=== PATIENT | female | born 1975 | race Caucasian/White ===

== ENCOUNTER → 2019-12-14 10:17 | Outpatient (BNVA) | payer SELFPAY | PROVIDERS: Family Provider Nurse Practitioner Family; PCP Registered Nurse; Visit Provider Registered Nurse | DX: I10 Essential (primary) hypertension (principal); E78.5 Hyperlipidemia, unspecified; F41.1 Generalized anxiety disorder; I25.10 Atherosclerotic heart disease of native coronary artery without angina pectoris; R51 Headache | CPT/HCPCS: 80053; 80061; 84443; 85025 ==

== ENCOUNTER 2021-05-03 14:08 | Outpatient (CLI) | payer OTHER, SELFPAY ==
--- NOTE | 2021-05-03 14:17 | MM_ITS ---
WS: [id number] SCREENING DIGITAL MAMMOGRAM WITH CAD HISTORY: SCREENING COMPARISON: None available. Bilateral CC and MLO views submitted. Computer aided detection analyzed. Breast composition: The breasts are heterogeneously dense, which may obscure small masses. No suspici ous masses, microcalcifications or architectural distortion. MM/[id number] IMPRESSION: BI-RADS: 1-Negative FOLLOW UP: 1 Year Follow-up
== END 2021-05-03 14:09 | disposition home or self-care (01) ==
LOC: RADSHAW 14:13
PROVIDERS: PCP Registered Nurse; Visit Provider Registered Nurse
DX: Z12.31 Encounter for screening mammogram for malignant neoplasm of breast (principal)
CPT/HCPCS: 77067

== ENCOUNTER → 2021-07-18 09:00 | Outpatient (BNVA) | payer MEDICAID, SELFPAY | PROVIDERS: PCP Registered Nurse; Visit Provider Registered Nurse | DX: Z20.822 Contact with and (suspected) exposure to COVID-19 (principal); Z11.52 Encounter for screening for COVID-19 | CPT/HCPCS: 87486; 87581; 87633; 87635 ==

== ENCOUNTER 2021-10-14 21:29 | Inpatient (IN) | payer MEDICAID, SELFPAY ==
--- NOTE | 2021-10-14 21:35 | W.ED.PSYCHS ---
HPI - Psych General: Chief Complaint: Psychiatric Symptoms Stated Complaint: SI Time Seen by Provider: 10/14/21 21:31 Source: patient and police Mode of arrival: other (police) Limitations: no limitations History of Present Illness: 46-year-old female is here with police for suicidal ideations. She states she has been having increasing depression she had been drinking tonight and had a knife and was going to kill herself with a knife. She did not actually cut herself but she had a plan of slitting her wrist. She states that she just does not feel like living anymore and feels like no one would miss her and just wants to be gone. She is denying any worsening improving factors. Associated symptoms: Reports depression and suicidal ideation Review of Systems Const: Denies: fever(s), chills, body aches or change in appetite Eyes: Denies: blurry vision or eye discomfort ENMT: Denies: throat pain or dental pain Card: Denies: chest pain Resp: Denies: dyspnea GI: Denies: abdominal pain, nausea, vomiting or diarrhea : Denies: dysuria Musc: Denies: neck pain or back pain Skin/Breast: Denies: rash Neuro: Denies: headache(s) Psych: Reports: depression and suicidal ideation Julian/Lymph: Denies: easy bruising All/Imm: Denies: urticaria PFSH ED PFSH: Medical History Anxiety and depression ASHD (arteriosclerotic heart disease) Dyslipidemia Hypertension Irritable bowel syndrome Tobacco abuse Family History Other Cancer Diabetes Heart disease Hypertension Thyroid disease Social History Smoking and tobacco status: current every day smoker cigarettes Packs smoked per day: 1 Years cigarettes smoked: 30 Alcohol intake: current Alcohol intake frequency: 3 or more drinks per day Adopted: No Caregiver/support person: No Lives independently: Yes Household members: spouse and children Marital status: Current occupational status: other History of recent travel: No Sexually active: Yes Current gender identity: Female Physical Exam Const: COMMON NORMALS: no acute distress, patient oriented x3 and healthy appearing HENMT: COMMON NORMALS: normocephalic and atraumatic HEAD & SCALP: normocephalic and atraumatic Eye: COMMON NORMALS: Equal, round and reactive pupils present and EOMs intact bilaterally PUPIL: Yes Equal, round and reactive pupils present Neck/C-Spine: COMMON NORMALS: full ROM and supple Chest: COMMONS NORMALS: normal inspection of the chest and normal palpation of entire chest wall Resp: COMMON NORMALS: normal respiratory effort, No retractions, No use of accessory muscles and clear to auscultation bilaterally AUSCULTATION: clear to auscultation bilaterally Cardio: COMMON NORMALS: regular rate, regular rhythm and No murmurs present (Cardio) RATE: regular rate RHYTHM: regular rhythm GI: COMMON NORMALS: Normal to inspection, nondistended, normoactive bowel sounds present, Soft to palpation, non-tender and no masses PALPATION: Yes Soft to palpation Extremity: COMMON NORMALS: normal to inspection and full ROM Neuro: COMMON NORMALS: patient oriented x3, moves all extremities and no focal motor deficits Psych: COMMON NORMALS: mental status grossly normal, Normal thought process present and cooperative THOUGHT PROCESS: Normal thought process present THOUGHT CONTENT: Yes Suicidality present Skin: COMMON NORMALS: no rashes or lesions noted and no wounds GENERAL SKIN EXAM: no rashes or lesions noted Course Vital Signs: Vital signs: Vital Signs Temperature 98 F 10/14/21 21:36 Pulse Rate 70 10/14/21 21:36 Respiratory Rate 24 H 10/14/21 21:36 Blood Pressure 150/90 10/14/21 21:36 Pulse Oximetry 100 10/14/21 21:36 [facility] - Psych Medical Decision Making Patient presents for suicidal ideation she has not been drinking alcohol as well. Patient placed on a 96-hour hold she is medically cleared I spoke to psychiatrist and will admit. Lab Data : 10/14/21 21:54 10/14/21 21:54 Laboratory Results WBC 9.7 10^3/uL (4.0-10.0) 10/14/21 21:54 RBC 4.96 10^6/uL (4.1-5.3) 10/14/21 21:54 Hgb 15.5 g/dL (11.5-15.3) H 10/14/21 21:54 Hct 43.4 % (37.0-47.0) 10/14/21 21:54 MCV 87.5 fl (81-99) 10/14/21 21:54 MCH 31.3 pg (28.0-34.0) 10/14/21 21:54 MCHC 35.7 g/dL (30.0-36.0) 10/14/21 21:54 RDW 12.3 % (12.1-15.1) 10/14/21 21:54 Plt Count 308 10^3/cmm (130-400) 10/14/21 21:54 MPV 8.8 fL (7.4-10.4) 10/14/21 21:54 Neut % (Auto) 59.6 % 10/14/21 21:54 Lymph % (Auto) 31.1 % 10/14/21 21:54 [place] % (Auto) 7.1 % 10/14/21 21:54 Eos % (Auto) 1.4 % 10/14/21 21:54 Baso % (Auto) 0.5 % 10/14/21 21:54 Neut # (Auto) 5.77 10^3/uL (1.8-7.7) 10/14/21 21:54 Lymph # (Auto) 3.0 10^3/uL (0.8-4.8) 10/14/21 21:54 [place] # (Auto) 0.7 10^3/uL (0.2-0.9) 10/14/21 21:54 Eos # (Auto) 0.1 10^3/uL (0.0-0.8) 10/14/21 21:54 Baso # (Auto) 0.1 10^3/uL (0.0-0.1) 10/14/21 21:54 Nucleated RBC % (auto) 0 % 10/14/21:54 Nucleated RBCs # 0.0 /100WBC 10/14/21 21:54 Sodium 133 mmol/L (136-145) L 10/14/21 21:54 Potassium 3.1 mmol/L (3.5-5.1) L 10/14/21 21:54 Chloride 95 mmol/L (98-107) L 10/14/21 21:54 Carbon Dioxide 23 mmol/L (22-29) 10/14/21 21:54 Anion Gap 18.1 (5-19) 10/14/21 21:54 BUN 4 mg/dL (6-20) L 10/14/21 21:54 Creatinine 0.6 mg/dL (0.5-0.9) 10/14/21 21:54 GFR Calculation 108.6 mL/min (90-130) 10/14/21 21:54 Glucose 113 mg/dL (65-115) 10/14/21 21:54 Calculated Osmolality 274 mOsm/kg (285-295) L 10/14/21 21:54 Calcium 9.7 mg/dL (8.5-10.5) 10/14/21 21:54 Total Bilirubin 0.4 mg/dL (0.15-1.2) 10/14/21 21:54 AST 27 U/L (0-32) 10/14/21 21:54 ALT 33 U/L (0-33) 10/14/21 21:54 Alkaline Phosphatase 72 IU/L (35-105) 10/14/21 21:54 Total Protein 8.0 g/dL (6.6-8.7) 10/14/21 21:54 Albumin 5.0 g/dL (3.5-5.2) 10/14/21 21:54 Globulin 3.0 g/dL (1.3-4.6) 10/14/21 21:54 HCG, Qual Negative (Negative) 10/14/21 21:55 Salicylates < 0.3 mg/dL (3-10) L 10/14/21 21:54 Urine Opiates Screen Negative ng/mL (Negative) 10/14/21 21:55 Acetaminophen < 5.0 ug/mL (10-30) L 10/14/21 21:54 Ur Barbiturates Screen Negative ng/mL (Negative) 10/14/21 21:55 Ur Phencyclidine Scrn Negative ng/mL (Negative) 10/14/21 21:55 Ur Amphetamines Screen Negative ng/mL (Negative) 10/14/21 21:55 U Benzodiazepines Scrn Negative ng/mL (Negative) 10/14/21 21:55 Urine Cocaine Screen Negative ng/mL (Negative) 10/14/21 21:55 U Marijuana (THC) Screen Negative ng/mL (Negative) 10/14/21 21:55 Ethyl Alcohol 200 mg/dL (0-10) H 10/14/21 21:54 Discharge Plan Discharge Patient Disposition: Admitted As Inpatient Clinical Impression: Suicidal ideation, Alcohol intoxication Condition: Stable Coding Level of Care Code ED Brake Machine Operator for Chg Fwd Exam Comprehensive
[2021-10-14 21:36] VITALS: BP 150/90; PULSE 70; RESP 24; TEMP 36.6; O2SAT 100
[2021-10-14 22:06] LABS: Basophils # 0.1 10^3/uL (0.0-0.1); Basophils % 0.5 %; Eosinophils # 0.1 10^3/uL (0.0-0.8); Eosinophils % 1.4 %; Hematocrit 43.4 % (37.0-47.0); Hemoglobin 15.5 g/dL (11.5-15.3); Lymphocytes % 31.1 %; Mean Corpuscular HGB Conc 35.7 g/dL (30.0-36.0); Mean Corpuscular Hemoglobin 31.3 pg (28.0-34.0); Mean Corpuscular Volume 87.5 fl (81-99); Mean Platelet Volume 8.8 fL (7.4-10.4); Monocytes # 0.7 10^3/uL (0.2-0.9); Monocytes % 7.1 %; Neutrophils # 5.77 10^3/uL (1.8-7.7); Neutrophils % 59.6 %; Nucleated Red Blood Cells % 0 %; Platelet Count 308 10^3/cmm (130-400); Red Blood Count 4.96 10^6/uL (4.1-5.3); Red Cell Distribution Width 12.3 % (12.1-15.1); White Blood Count 9.7 10^3/uL (4.0-10.0)
[2021-10-14 22:08] LABS: HCG Qualitative Urine. Negative (Negative)
[2021-10-14 22:20] LABS: Amphetamines Screen Urine Negative (Negative); Barbiturates Screen Urine Negative (Negative); Benzodiazepines Screen Urine Negative (Negative); Cocaine Screen Urine Negative (Negative); Opiate Screen Urine Negative (Negative); PCP Screen Urine Negative (Negative); THC Screen Urine Negative (Negative)
[2021-10-14 22:32] LABS: Alanine Aminotransferase 33 U/L (0-33); Alcohol Level 200 mg/dL (0-10); Alkaline Phosphatase 72 IU/L (35-105); Anion Gap 18.1 (5-19); Aspartate Amino Transferase 27 U/L (0-32); Blood Urea Nitrogen 4 mg/dL (6-20); Calcium 9.7 mg/dL (8.5-10.5); Carbon Dioxide 23 mmol/L (22-29); Chloride 95 mmol/L (98-107); Glomerular Filtration Rate 108.6 mL/min (90-130); Glucose 113 mg/dL (65-115); Osmolality Calculated 274 mOsm/kg (285-295); Potassium 3.1 mmol/L (3.5-5.1); Sodium 133 mmol/L (136-145); Total Bilirubin 0.4 mg/dL (0.15-1.2)
[2021-10-14 22:33] LABS: Acetaminophen < 5.0 ug/mL (10-30); Salicylate < 0.3 mg/dL (3-10)
[2021-10-14 23:07] VITALS: BP 124/79; PULSE 63; RESP 18; TEMP 36.4; O2SAT 98
[2021-10-14 23:21] VITALS: BP 139/88; PULSE 68; RESP 18; TEMP 36.3; O2SAT 94
[2021-10-14] MEDS: acetaminophen 325 mg Tablet 650 MG PO (23:37)
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
[2021-10-15] MEDS: trazodone 50 mg Tablet PO ×2 (00:09→21:05)
[2021-10-15 06:00] VITALS: BP 121/73; PULSE 90; RESP 17; TEMP 36.8; O2SAT 94
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
[2021-10-15] MEDS: multivitamin therapeutic Tablet 1 TAB PO (09:53)
[2021-10-15] MEDS: folic acid 1 mg Tablet PO (09:53)
[2021-10-15] MEDS: aspirin 81 mg EC Tablet PO (09:53)
[2021-10-15] MEDS: metoprolol tartrate 25 mg Tablet PO (09:53)
[2021-10-15] MEDS: thiamine 100 mg Tablet PO (09:53)
[2021-10-15] MEDS: atorvastatin 40 mg Tablet PO (09:53)
[2021-10-15] MEDS: hydroCHLOROthiazide 25 mg Tablet 12.5 MG PO (09:54)
[2021-10-15] MEDS: fluoxetine 10 mg Capsule 20 MG PO (09:54)
[2021-10-15] MEDS: lisinopril 10 mg Tablet PO (10:00)
[2021-10-15 14:00] VITALS: BP 125/70; PULSE 59; RESP 16; O2SAT 94
--- NOTE | 2021-10-15 15:21 | PC.SOCIAL ---
Patient attended and participated in group.
[2021-10-15 19:34] VITALS: BP 135/85; PULSE 61; RESP 18; TEMP 36.6; O2SAT 95
[2021-10-16 06:00] VITALS: BP 113/70; PULSE 89; RESP 17; TEMP 37; O2SAT 95
[2021-10-16] MEDS: thiamine 100 mg Tablet PO (10:11)
[2021-10-16] MEDS: folic acid 1 mg Tablet PO (10:11)
[2021-10-16] MEDS: fluoxetine 10 mg Capsule 20 MG PO (10:11)
[2021-10-16] MEDS: aspirin 81 mg EC Tablet PO (10:11)
[2021-10-16] MEDS: lisinopril 10 mg Tablet PO (10:12)
[2021-10-16] MEDS: multivitamin therapeutic Tablet 1 TAB PO (10:12)
[2021-10-16] MEDS: atorvastatin 40 mg Tablet PO (10:12)
[2021-10-16] MEDS: metoprolol tartrate 25 mg Tablet PO (10:12)
[2021-10-16] MEDS: hydroCHLOROthiazide 25 mg Tablet 12.5 MG PO (10:13)
--- NOTE | 2021-10-16 12:23 | P.NPUPN_ITS ---
Subjective NPU Subjective: She says that she is feeling much better. She is not sure why. She is surprised how well she is feeling. She does not like to be here and we think that that would cause her to be in a stressed out mood. She thinks that depression is more prominent than anxiety. She does get overwhelmed easily. She has stopped going to family functions because she cannot stand the drama and gets overwhelmed easily. She sometimes gets overwhelmed at [employer]. She has not had any side effects from the Prozac 20 mg. She wants to take the lowest dose possible. She does not like taking medication in general. Mental Status Exam MSE Comments: This is a 46-year-old overweight female who appears ap proximately her stated age and is in no acute distress. She is pleasant and cooperative with the evaluation. She is dressed in hospital scrubs with fairly good grooming. psychomotor activity is normal Speech is at a regular rate and rhythm, normal volume, good articulation, not pressured. Alert, oriented X3 Attention and concentration appears to be normal. Memory is intact Mood is mildly depressed. Affect is mildly dysphoric, significantly better Thought process is logical and goal-directed. Thought content: Denies auditory and visual hallucinations. No delusions or paranoia are noted. No current suicidal ideation. no homicidal ideation. Fund of knowledge is average. Insight and judgment appear to be fair. Impulse control is poor. Cognition: Patient Appearance: Appropriate Level of Consciousness: Awake and Alert Patient Cognition Impaired: No Ability to Follow Directions: Good Patient Orientation (long list): Person, Place, Time, Name, Age, Birthday, Month and Time of Day Comprehension Ability: No Impairment Hallucination Type: None Delusion Description: Not Present Thought Process: Appropriate Affect: Affect Description: Appropriate and Anxious Behavior: Patient Behavior: Appropriate and Cooperative Speech Pattern: Appropriate and Clear Vitals/I&O/Wt Last Vital Signs Temp 98.6 F 10/16/21 06:00 Pulse 89 10/16/21 06:00 Resp 17 10/16/21 06:00 BP 113/70 10/16/21 06:00 Pulse Ox 95 10/16/21 06:00 Data NPU : 10/14/21 21:54 10/14/21 21:54 A&P Assessment and plan (1) Suicidal ideation: Status: Acute (2) Alcohol intoxication: Status: Acute (3) Shortness of breath at rest: Status: Acute (4) Anxiety and depression: Status: Acute (5) Irritable bowel syndrome: Status: Acute Qualifiers: Irritable bowel syndrome type: without diarrhea Qualified Code(s): K58.9 - Irritable bowel syndrome without diarrhea (6) Tobacco abuse: Status: Acute (7) Hypertension: Status: Acute Qualifiers: Hypertension type: essential hypertension Qualified Code(s): I10 - Essential (primary) hypertension (8) ASHD (arteriosclerotic heart disease): Status: Chronic (9) Dyslipidemia: Status: Chronic Plan This is a 46-year-old female who has longstanding anxiety and depression but never adequately treated who comes in for worsening depression and alcohol abuse with suicidal ideation. Plan: 1. Continue current medication. Increase Prozac to 20 mg daily 2. Continue every 15 minute checks for safety. 3. Encourage individual, group and milieu therapies. 4. Encourage sober living treatment after discharge at the highest level of care to which she is willing to commit. 5. We will monitor for safety for herself in the community prior to discharge. Involuntary Hold Information 96 Hour Hold: 96 Hour Involuntary Admission: Yes 96 Hour Hold Ending Date: 10/18/21 96 Hour Hold Ending Time: 22:45 Attestations NPU Medical Necessity Statement*: Inpatient hospitalization is medically necessary and the clinically appropriate intervention at this time. We will initiate medications and make changes as indicated. Coding Level of Care Code Acute Environmental Conflict Manager for [facility] Diagnoses Suicidal ideation R45.851 Alcohol intoxication F10.929 Shortness of breath at rest R06.02 Anxiety and depression F41.9; F32.9 Irritable bowel syndrome K58.9 Irritable bowel syndrome type: without diarrhea Tobacco abuse Z72.0 Hypertension I10 Hypertension type: essential hypertension ASHD (arteriosclerotic heart disease) I25.10 Dyslipidemia E78.5
[2021-10-16 13:38] VITALS: BP 107/58; PULSE 58; RESP 16; TEMP 36.6; O2SAT 97
[2021-10-16 19:58] VITALS: BP 103/64; PULSE 60; RESP 17; TEMP 36.9; O2SAT 95
[2021-10-17 06:00] VITALS: BP 108/75; PULSE 69; RESP 18; TEMP 36.9; O2SAT 96
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
[2021-10-17] MEDS: thiamine 100 mg Tablet PO (08:28)
[2021-10-17] MEDS: lisinopril 10 mg Tablet PO (08:28)
[2021-10-17] MEDS: folic acid 1 mg Tablet PO (08:28)
[2021-10-17] MEDS: multivitamin therapeutic Tablet 1 TAB PO (08:28)
[2021-10-17] MEDS: hydroCHLOROthiazide 25 mg Tablet 12.5 MG PO (08:29)
[2021-10-17] MEDS: metoprolol tartrate 25 mg Tablet PO (08:29)
[2021-10-17] MEDS: aspirin 81 mg EC Tablet PO (08:29)
[2021-10-17] MEDS: atorvastatin 40 mg Tablet PO (08:29)
[2021-10-17] MEDS: fluoxetine 10 mg Capsule 20 MG PO (08:29)
[2021-10-17 08:31] VITALS: BP 108/75; PULSE 69; RESP 18; TEMP 36.9; O2SAT 96
--- NOTE | 2021-10-17 08:42 | PC.NURSE ---
Discharge Note All discharge teaching provided to patient and . Left by POV. All belongings returned to patient and property sheet signed. Verbalized understanding and discharge sheet signed. All questions answered and support voiced. Discharged at 0840 no distress noted and VSS.
== END 2021-10-17 08:40 | disposition home or self-care (01) | DRG 881 ==
LOC: ER 22:09 → NP 23:19
PROVIDERS: Admitting Provider Psychiatry & Neurology Psychiatry; Emergency Provider Emergency Medicine; PCP Registered Nurse; Visit Provider Psychiatry & Neurology Psychiatry
DX: F32.9 Major depressive disorder, single episode, unspecified (principal); R45.851 Suicidal ideations; F41.9 Anxiety disorder, unspecified; F10.929 Alcohol use, unspecified with intoxication, unspecified; F17.210 Nicotine dependence, cigarettes, uncomplicated; Y90.7 Blood alcohol level of 200-239 mg/100 ml
CPT/HCPCS: 80053; 80306; 80307; 81025; 85025; 97150; 97165; 99285

== ENCOUNTER → 2022-03-05 14:25 | Outpatient (BNVA) | payer MEDICAID, SELFPAY | PROVIDERS: PCP Registered Nurse; Visit Provider Registered Nurse | DX: I10 Essential (primary) hypertension (principal); G56.03 Carpal tunnel syndrome, bilateral upper limbs; Z72.0 Tobacco use; R06.02 Shortness of breath | CPT/HCPCS: 80053; 85025 ==

== ENCOUNTER 2022-07-29 20:34 | Observation (INO) | payer MEDICAID, SELFPAY ==
[2022-07-29] VITALS (10 sets, daily range): BP systolic 133–175; BP diastolic 76–106; PULSE 63–78; RESP 16–25; TEMP 37.4; O2SAT 93–100; BMI 27.3
--- NOTE | 2022-07-29 20:34 | ECG_ITS ---
[facility] Test Date: 2022-07-29 Pat Name: Yana Vyas Department: Room: 104 Gender: Female Restorative Rehab Aide: : 1975 Requested By: Keny Oquendo Order Number: [id number] Meli MD: Keny Oquendo M.D. Measurements Intervals [place] Rate: 63 P: 55 DE: 166 QRS: 1 QRSD: 102 T: 74 QT: 397 QTc: 407 Interpretive Statements SINUS RHYTHM INCOMPLETE RIGHT BUNDLE BRANCH BLOCK [90+ ms QRS DURATION, TERMINAL R IN V1/V2, 40+ ms S IN I/aVL/V4/V5/V6] NONSPECIFIC T-WAVE ABNORMALITY Compared to ECG 05/08/2018 06:08:57 Possible ischemia no longer present T-wave abnormality still present Electronically Signed On 07-30-2022 7:48:20 [employer] SUPERVISOR by Keny Oquendo M.D. [id number]
--- NOTE | 2022-07-29 20:43 | P.HP_ITS ---
Providers/Chief Complaint Admitting Physician: Keny Oquendo M.D Primary Care Provider: ISAAC Rodriguez Chief Complaint: cp History of Present Illness Yana Vyas is a 47 year old female with past medical history ofcoronary artery disease s/p PCI in 2018, hypertension, hyperlipidemia, smoking presented to [facility] ER in [place] with 1 to 2 hours of severe substernal chest discomfort. According to patient it felt similar to her pain prior to her MA. It radiated to her shoulder blades and to left side of the chest. Troponins performed at [facility] did not trend up significantly. EKG showed anteroseptal prior infarct with T wave inversions in lead V3. Patient had CTA performed at outside hospital ER to rule out aortic dissection and was negative. Review of Systems Narrative: CONSTITUTIONAL: No fever chills weight loss or gain or night sweats. [] HEENT: Normocephalic, atraumatic.[] RESPIRATORY: No cough, sputum, hemoptysis or wheezing.[] CARDIOVASCULAR: Chest pain GI: no nausea vomiting diarrhea. [] LARYNGOLOGIST: No numbness, tingling, weakness or loss of function in any part of the body. [] MUSCULOSKELETAL: No knee or joint pain or rashes. [] Medications/Allergies Home Medications Medication Instructions Recorded Confirmed Last Taken Type aspirin 81 mg chewable tablet 81 mg PO DAILY 10/25/21 07/10/22 Unknown History triamcinolone acetonide 0.5 % 1 applic topical BID #15 grams 03/05/22 07/10/22 Unknown Rx topical cream metoprolol tartrate 25 mg tablet See Rx Instructions .Route 03/14/22 07/10/22 Unknown Rx .COMPLEX #180 tabs albuterol sulfate 90 mcg/actuation See Rx Instructions .Route 03/25/22 07/10/22 Unknown Rx aerosol inhaler .COMPLEX #8.5 grams atorvastatin 40 mg tablet See Rx Instructions .Route 04/15/22 07/10/22 Unknown Rx .COMPLEX #90 tabs lisinopril 10 See Rx Instructions .Route 04/25/22 07/10/22 Unknown Rx mg-hydrochlorothiazide 12.5 mg .COMPLEX #180 tabs tablet fluoxetine 10 mg capsule See Rx Instructions .Route .COMPLEX 07/10/22 07/10/22 Unknown History fluticasone propionate 110 1 puff inhalation BID 30 days #12 07/10/22 07/10/22 Unknown Rx mcg/actuation HFA aerosol inhaler grams (Flovent HFA) Allergies Allergy/AdvReac Type Severity Reaction Status Date / Time lisinopril Allergy ALGY-Rash Verified 07/29/22 20:49 PFSH Acute PFSH: Medical History Anxiety and depression ASHD (arteriosclerotic heart disease) Dyslipidemia History of MA (myocardial infarction) Hypertension Irritable bowel syndrome Psychiatric care Tobacco abuse Surgical History History of heart artery stent Family History Other Cancer Diabetes Heart disease Hypertension Thyroid disease Social History Smoking and tobacco status: current every day smoker cigarettes Packs smoked per day: 1 Years cigarettes smoked: 30 Alcohol intake: current Alcohol intake frequency: 3 or more drinks per day Adopted: No Caregiver/support person: No Lives independently: Yes Household members: spouse and children Marital status: Current occupational status: other History of recent travel: No Sexually active: Yes Current gender identity: Female Female Reproductive History: Date of last menstrual period: 07/15/22 Physical Exam Narrative: GENERAL: Patient is alert, awake and oriented x3. [] NECK: No jugular vein distension. [] HEENT: No cyanosis. No icterus. No pallor. [] HEART: Regular S1 and S2. No murmur, rub or gallop. [] LUNGS: Clear to auscultate bilaterally. [] CENTRAL NERVOUS SYSTEM: Grossly nonfocal. [] EXTREMITIES: Lower extremities with 1+ edema bilaterally. Pulses palpable in the lower extremities, both dorsalis pedis and posterior tibial. [] A&P Assessment and plan (1) Chest pain: (2) Tobacco abuse: (3) Hypertension: Qualifiers: Hypertension type: essential hypertension Qualified Code(s): I10 - Essential (primary) hypertension (4) ASHD (arteriosclerotic heart disease): (5) Dyslipidemia: Plan Patient has presented with sudden onset severe substernal severe chest pain that is on and off however initial episode lasted for about 1 to 2 hours. She felt it was similar to her prior MA. Symptoms are concerning for unstable angina. Continue aspirin and Plavix We will continue anticoagulation Echocardiogram ordered Blood pressure control with home meds Given concern for unstable angina, will proceed with coronary angiogram with possible percutaneous coronary intervention. Risks and benefits of procedure have been discussed with the patient. She understands the risks and benefits and wants to proceed with the procedure. N.p.o. past midnight Attestations Medical Necessity Statement*: Care not expected to cross 2 midnights. Patient has presented with possible unstable angina and plan for coronary angiogram with possible percutaneous coronary intervention in the morning. Coding Level of Care Code Acute Code for [facility] Fwd Diagnoses Chest pain R07.9 Tobacco abuse Z72.0 Hypertension I10 Hypertension type: essential hypertension ASHD (arteriosclerotic heart disease) I25.10 Dyslipidemia E78.5
--- NOTE | 2022-07-29 20:49 | USCV_ITS ---
Yana Vyas Age: 47 Gender: F : 1975 Exam Date: 07/29/2022 21:13 Ordering Phys: Keny Oquendo M.D ([email or web address]) Technologist: ANDREA Exam Location: [facility] [place] Indication: chest pain today. History [place] 2018 with cardiac stenting, long-term smoker continues smoking. HTN BP: 170 / 99 HR: 66 Rhythm: Sinus Technical Quality: Adequate MEASUREMENTS (Male / Female) Normal Values 2D ECHO LV Diastolic Diameter PLAX 4.4 cm 4.2 - 5.9 / 3.9 - 5.3 cm LV Systolic Diameter PLAX 3.0 cm IVS Diastolic Thickness 1.1 cm 0.6 - 1.0 / 0.6 - 0.9 cm IVS Systolic Thickness 1.3 cm LVPW Diastolic Thickness 1.3 cm 0.6 - 1.0 / 0.6 - 0.9 cm LVPW Systolic Thickness 1.7 cm LVOT Diameter 2.0 cm LV Ejection Fraction 2D Teich 61.1 % LV Ejection Fraction MOD 2C 63.9 % LV Ejection Fraction 2C AL 66.1 % LA Diameter 3.4 cm LA Width 4.0 cm LA Height 5.4 cm RA Width 3.4 cm RA Height 3.7 cm Aorta at Sinotubular Diameter 3.0 cm IVC Diameter 1.5 cm M-MODE Aortic Annulus Diameter 3.1 cm LA Ao Ratio MM 1.1 MV E Point Septal Separation 0.4 cm DOPPLER AV Peak Velocity 157.0 cm/s LVOT Peak Velocity 117.0 cm/s AV Area Cont Eq vti 2.2 cm squared AV Area Cont Eq pk 2.3 cm squared MV Area PHT 4.2 cm squared Mitral E to A Ratio 1.4 MV E' Velocity 61.5 cm/s Mitral E to MV E' Ratio 7.3 Mitral E to LV E' Lateral Ratio 7.3 Mitral E to LV E' Septal Ratio 7.5 TR Peak Velocity 250.0 cm/s TR Peak Gradient 25.0 mmHg TV Peak E Velocity 53.0 cm/s Right Atrial Pressure 5.0 mmHg Pulmonary Artery Systolic Pressu 30.0 mmHg PV Peak Velocity 111.0 cm/s RV Acceleration Time 0.1 s RV Ejection Time 0.4 s RV AcT/ET 0.2 FINDINGS Left Ventricle Left ventricle is normal in size. LV systolic function is normal with EF of 55 to 60%. No regional wall motion abnormalities are seen. Right Ventricle Normal in size and function Right Atrium Normal in size Left Atrium Normal in size Mitral Valve Structurally normal mitral valve. Aortic Valve Structurally normal aortic valve. No significant stenosis or regurgitation. Tricuspid Valve Mild tricuspid regurgitation. RVSP is normal Pulmonic Valve Not well visualized Pericardium Normal Aorta Normal in size IVC Appears to be normal CONCLUSIONS LV systolic function is normal with EF of 55-60% Mild tricuspid regurgitation No comparison studies were available Keny Oquendo MD (Electronically Signed) Final Date: 30 July 2022 08:01 S
[2022-07-29] MEDS: metoprolol tartrate 25 mg Tablet PO (21:56)
[2022-07-29 22:04] LABS: Troponin(5th) Baseline 6 ng/L (0-10)
[2022-07-29 22:07] LABS: Alanine Aminotransferase 36 U/L (0-33); Albumin Level 4.4 g/dL (3.5-5.2); Alkaline Phosphatase 53 U/L (35-105); Aspartate Amino Transferase 31 U/L (0-32); Blood Urea Nitrogen 7 mg/dL (6-20); Calcium 8.9 mg/dL (8.5-10.5); Carbon Dioxide 25 mmol/L (22-29); Chloride 93 mmol/L (98-107); Chol HDL Ratio 4.31 mg/dL (0.0-4.40); Cholesterol 155 mg/dL (0-200); Glomerular Filtration Rate 90.5 mL/min (90-130); Glucose 99 mg/dL (65-115); HDL Cholesterol 36 mg/dL (60-100); LDL Cholesterol Calculated 95 mg/dL (50-129); LDL HDL Ratio 2.64 RATIO (0.00-3.22); Osmolality Calculated 266 mOsm/kg (285-295); Phosphorus 3.6 mg/dL (2.5-4.5); Sodium 129 mmol/L (136-145); Total Bilirubin 0.3 mg/dL (0.15-1.2); Total Protein 7.4 g/dL (6.6-8.7); Triglycerides 119 mg/dL (0-150)
[2022-07-29 22:14] LABS: Estmated Average Glucose 143; Hemoglobin A1C 6.6 % (4.0-6.0)
[2022-07-30] VITALS (68 sets, daily range): BP systolic 100–158; BP diastolic 56–92; PULSE 55–73; RESP 12–26; TEMP 36.7–37; O2SAT 93–97
[2022-07-30] MEDS: acetaminophen 325 mg Tablet 650 MG PO (00:17)
[2022-07-30 01:03] LABS: Troponin 5 2HR Delta 0 ABS# (0-10)
[2022-07-30 03:57] LABS: Basophils % 0.4 %; Eosinophils % 0.8 %; Hematocrit 38.1 % (37.0-47.0); Lymphocytes # 0.6 10^3/uL (0.8-4.8); Lymphocytes % 23.8 %; Mean Corpuscular HGB Conc 34.1 g/dL (30.0-36.0); Mean Corpuscular Hemoglobin 30.4 pg (28.0-34.0); Mean Corpuscular Volume 89.2 fl (81-99); Mean Platelet Volume 9.1 fL (7.4-10.4); Monocytes # 0.3 10^3/uL (0.2-0.9); Monocytes % 10.3 %; Neutrophils # 1.67 10^3/uL (1.8-7.7); Neutrophils % 63.9 %; Nucleated Red Blood Cells % 0 %; Platelet Count 196 10^3/cmm (130-400); Red Blood Count 4.27 10^6/uL (4.1-5.3); Red Cell Distribution Width 12.9 % (12.1-15.1); White Blood Count 2.6 10^3/uL (4.0-10.0)
[2022-07-30 04:15] LABS: Anion Gap 15.4 (5-19); Blood Urea Nitrogen 7 mg/dL (6-20); Calcium 8.8 mg/dL (8.5-10.5); Carbon Dioxide 22 mmol/L (22-29); Chloride 97 mmol/L (98-107); Glomerular Filtration Rate 108.1 mL/min (90-130); Glucose 93 mg/dL (65-115); Osmolality Calculated 270 mOsm/kg (285-295); Potassium 3.4 mmol/L (3.5-5.1); Sodium 131 mmol/L (136-145)
[2022-07-30 04:57] LABS: Troponin 5 6HR Delta 0 ng/L (0-12)
[2022-07-30] MEDS: diphenhydrAMINE 50 mg Capsule PO (05:51)
[2022-07-30] MEDS: sodium chloride 0.9% 1,000 ML 50 ML IV (05:52)
[2022-07-30] MEDS: lisinopril 10 mg Tablet PO (09:49)
[2022-07-30] MEDS: aspirin 81 mg EC Tablet PO (09:50)
[2022-07-30] MEDS: metoprolol tartrate 25 mg Tablet PO (09:50)
[2022-07-30] MEDS: clopidogrel 75 mg Tablet PO (09:50)
--- NOTE | 2022-07-30 09:50 | XACV_ITS ---
Exam Room: 1 Ht: 160 cm Wt: 70 kg BSA: 1.78 m2 Gender: Female : 1975 Any Known Allergies: No known allergies Exam Priority: Routine Procedure(s): Procedure Description: Diagnostic procedure Procedure Description: LV gram Procedure Description: Left heart catheterization Diagnostic Cath Status: Urgent Diagnostic Findings * INDICATION: Patient with prior coronary artery disease history was transferred from outside hospital with worsening chest pain symptoms. Symptoms were typical and felt like her prior CT. Plan for coronary angiogram with possible percutaneous coronary intervention. * Left Main has no significant disease. * Circumflex has no significant disease. * Mid Left Anterior Descending: minimal 30% stenosis, CHAZ: 3 flow. * Proximal Right Coronary Artery: minimal 30% stenosis, CHAZ: 3 flow. * Posterior Descending Right: minimal 30% stenosis, CHAZ: 3 flow. * Coronary angiography shows right dominance. PCI Status: Elective Conclusions 1. Non-obstructive Coronary artery disease. 2. Normal left ventricular systolic function. Ejection fraction of 60%. Recommendations * Aggressive risk factor modification. * Outpatient cardiologyl fellow up in 4 weeks. Interventional RX Recommendation: medical therapy and/or counseling Diagnostic RX Recommendation: medical therapy and/or counseling Anticoagulation: Heparin Ventriculography Ejection Fraction: 60.0 % Pressures Phase:Rest AO : 95 / 71 ( 83 ) @ 10:20:00 AM 85 / 61 ( 73 ) @ 10:22:00 AM / ( -15 ) @ 10:28:00 AM 113 / 64 ( 87 ) @ 10:31:00 AM 113 / 63 ( 86 ) @ 10:31:00 AM LV : 116 / @ 10:29:00 AM 123 / 9 / 24 @ 10:30:00 AM 127 / 8 / 24 @ 10:31:00 AM Valves Phase:DefaultPhase AV : 16.0 @ 10:40:53 AM 16.0 @ 10:40:53 AM AV Mean Gradient: 18.0 @ 10:40:53 AM 18.0 @ 10:40:53 AM Clinical Evaluation EBL: 5mL-10mL Procedural Details Procedure Consent Obtained. Admit Source: In Patient. Pre-Procedure Time Out. Identified patient by full name and date of as verbalized by the patient/guarantor. Does the consent match the physician's order: Yes. Accurate & Complete Informed Consent: Yes. Inpatient/Outpatient History & Physical on Chart: Yes. If H&P is completed, is and addenduem needed: No; If yes, is the addendum complete: N/A. Visualize and Verify Site with Patient/Guarantor: N/A. Relevant Radiology Images available: N/A. The risks, benefits, and alternatives of sedation and/or procedure were discussed by physician. The patient agrees to continue. Procedure started. [facility] Clinical Fraility Score: 3: Managing Well. Chest Pain Symptom Assessment: Typical Angina Symptoms. 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 Correct patient, site and procedure confirmed by cath team. Current diagnosis: Unstable angina. PERRLA. Strong, equal hand planning division superintendent bilaterally. Lungs clear x 5 lobes. IV Site on Arrival: 20 gauge in the right anticubital. IV Fluids: 0.9% NaCl at KVO. 250 mL infused prior to lab scientist. Pre Procedural Pulses: bilateral radial was 2+. Oxygen started at 2liters/min via nasal canula. right groin was prepped with chloroprep then draped in the usual sterile fashion. right radial was prepped with chloroprep then draped in the usual sterile fashion. Baseline sample Acquired. HR: 53 BPM. Physician notified. Physician arrived. Physician scrubbed in. Immediate Pre-Procedure Time Out. Correct Patient: Yes; Correct Procedure: Yes; Correct Site: Yes; Correct Patient Position: Yes; Correct Supplies: Yes; Dried Flammable Prep: Yes; Blood Products Available: N/A;. Lidocaine 1% infiltrated to the right radial. Arterial access obtained. A 5 emirati TIG catheter in over wire. Multiple views taken of left coronary artery. Catheter redirected to the RCA. Catheter out. A 5 emirati JR4 catheter in over wire. Multiple views taken of right coronary artery. Catheter out. A 5 emirati Straight Pig catheter in over wire. EDP Sample taken: LV 116/9,22; HR: 71 BPM; SpO2: 97%. LV gram performed in AGARWAL @ 10 mL/second for a total of 30 mL. EDP Sample taken: LV 123/9,24; HR: 72 BPM; SpO2: 98%. Pullback taken: LV 127/8,24; AO 113/64(87); Mean: 18mmHg, Peak to Peak: 16mmHg, SEP: 8sec/min; HR: 72 BPM; SpO2: 98%. Catheter out. Patient EF: Normal. Wire out. A TR Band was successful obtaining hemostatsis at the Right Radial artery insertion site. PERRLA. Strong, equal hand planning division superintendent bilaterally. No VTE prophylaxis required. Medication's Wasted: Nitro = 49.8 mg. Medication's Wasted: Heparin = 1000 units. Medication's Wasted: Other = Fentanyl 25 mcg. Total IV fluids: 67 mL. Post-op diagnosis: non-obstructive CAD. Complications: none. Estimated blood loss: 5mL-10mL. Responsiveness - Normal response to verbal stimuli; alert and oriented, PERRLA. Airway - Unaffected, no intervention required; spontaneous ventilation. Circulation: W/N/L, pulses unchanged. Nausea/Vomiting: No. Procedure completed. Patient transferred by wheelchair to CPRU. Vital chart was stopped. Access Site Site: Right Radial artery Sheath Size: 6 Fr Hemostasis Method: TR Band Hemostasis Success: Successful Procedure Medications Start: 10:13 AM Stop: 10:13 AM Medication: Versed Amount: 1 mg Route: I.V. Start: 10:13 AM Stop: 10:13 AM Medication: Fentanyl Amount: 50 mcg Route: I.V. Start: 10:14 AM Stop: 10:14 AM Medication: Versed Amount: 1 mg Route: I.V. Start: 10:15 AM Stop: 10:15 AM Medication: Fentanyl Amount: 25 mcg Route: I.V. Start: 10:19 AM Stop: 10:19 AM Medication: Nitrogylcerin Amount: 200 mcg Route: I.A. Start: 10:19 AM Stop: 10:19 AM Medication: Versed Amount: 1 mg Route: I.V. Start: 10:19 AM Stop: 10:19 AM Medication: Heparin Amount: 5000 units Route: I.V. Start: 10:25 AM Stop: 10:25 AM Medication: Versed Amount: 1 mg Route: I.V. I, the attending physician, have reviewed and verified all procedure medications. Yes, all medications given per verbal order History/Risk Factors Hypertension: Yes Peripheral Arterial Disease (PAD): No Myocardial Infarction (CT): No Obesity: No Tobacco Use: Current/Recent(w/in 1 year) Prior Interventions PCI: Yes CABG: No Valve Surgery: No Report Signatures Finalized by Keny Oquendo MD on 07/31/2022 01:50 PM
--- NOTE | 2022-07-30 09:54 | W.PM.OPSUD ---
Surgery/Procedure H&P Update DATE OF PROCEDURE: July 30, 2022 DATE H&P PERFORMED: 07/29/22 H&P UPDATE INFORMATION: I have reviewed H&P completed within last 30 days, I have examined patient prior to procedure and No changes to prior documentation PREOP DIAGNOSIS: Worsening angina PRIMARY INDICATION FOR PROCEDURE: Worsening angina PLANNED PROCEDURE: Operation Date: 07/30/22 07:30 Proposed Procedures p Cardiac Catheterization c Poss PCI(Not Applicable) - Keny Oquendo M.D PATIENT REASSESSED PRIOR TO SEDATION, WITH NO CHANGE NOTED: Yes PHYSICAL EXAM: alert, oriented x 3 and regular rate & rhythm AIRWAY EVAL/ANESTHESIA PLAN: normal airway, ASA III, Monitored Anesthesia, Local Anesthesia, Risks, benefits & alternatives of sedation and/or procedure discussed and Patient agrees to continue as planned ADDITIONAL INFORMATION: Moderate sedation
--- NOTE | 2022-07-30 11:00 | PC.NURSE ---
received pt from [employer] [facility] post diagnostic [facility]. pt complains of no pain and alert and oriented x4. tr band on right wrist with distal radial pulse. no hematoma or bruising noted. pt educated on restrictions of right wrist. pt acknowledged understanding. pt placed on monitor and will be monitored per protocol.Pt to be transferred to CSU within after an initial 30 min recovery in CPRU. Report given to floor nurse.
--- NOTE | 2022-07-30 11:01 | P.DS_ITS ---
Discharge Providers Date of Admission: 07/29/22 20:34 Date of Discharge: July 30, 2022 Attending Provider at Admission: Keny Oquendo M.D Attending Provider at Discharge: Keny Oquendo M.D Primary Care Provider: ISAAC Rodriguez Diagnoses at Discharge Discharge Diagnosis (1) Chest pain: Status: Resolved (2) Tobacco abuse: Status: Acute (3) Hypertension: Status: Acute Qualifiers: Hypertension type: essential hypertension Qualified Code(s): I10 - Essential (primary) hypertension (4) ASHD (arteriosclerotic heart disease): Status: Chronic (5) Dyslipidemia: Status: Chronic Reason for Visit Reason for Visit: Chest pain Brief History: 47-year-old woman with past medical history of hypertension, CAD with prior PCI in 2018 who was transferred from [facility] with concerns for unstable angina. Patient had chest pain episodes yesterday that were typical. They were worsening. Troponins did not increase. EKG did not show ischemia. Hospital Course Hospital Course She underwent coronary angiogram today. It showed prior patent stent and nonobstructive CAD. Patient was observed for bleeding and TR band was taken off for per protocol. Patient was discharged home in a stable condition. Physical Exam Narrative: GENERAL: Patient is alert, awake and oriented x3. [] NECK: No jugular vein distension. [] HEENT: No cyanosis. No icterus. No pallor. [] HEART: Regular S1 and S2. No murmur, rub or gallop. [] LUNGS: Clear to auscultate bilaterally. [] CENTRAL NERVOUS SYSTEM: Grossly nonfocal. [] EXTREMITIES: Lower extremities with 1+ edema bilaterally. Pulses palpable in the lower extremities, both dorsalis pedis and posterior tibial. [] Discharge Data Studies Completed and Pending Completed Studies During Hospitalization Category Date Time Status CV. 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 Routine Lab 07/29/22 20:42 Ordered Laboratory Results WBC 2.6 10^3/uL (4.0-10.0) L 07/30/22 03:36 RBC 4.27 10^6/uL (4.1-5.3) 07/30/22 03:36 Hgb 13.0 g/dL (11.5-15.3) 07/30/22 03:36 Hct 38.1 % (37.0-47.0) 07/30/22 03:36 MCV 89.2 fl (81-99) 07/30/22 03:36 MCH 30.4 pg (28.0-34.0) 07/30/22 03:36 MCHC 34.1 g/dL (30.0-36.0) 07/30/22 03:36 RDW 12.9 % (12.1-15.1) 07/30/22 03:36 Plt Count 196 10^3/cmm (130-400) 07/30/22 03:36 MPV 9.1 fL (7.4-10.4) 07/30/22 03:36 Neut % (Auto) 63.9 % 07/30/22 03:36 Lymph % (Auto) 23.8 % 07/30/22 03:36 Upson % (Auto) 10.3 % 07/30/22 03:36 Eos % (Auto) 0.8 % 07/30/22 03:36 Baso % (Auto) 0.4 % 07/30/22 03:36 Neut # (Auto) 1.67 10^3/uL (1.8-7.7) L 07/30/22 03:36 Lymph # (Auto) 0.6 10^3/uL (0.8-4.8) L 07/30/22 03:36 Upson # (Auto) 0.3 10^3/uL (0.2-0.9) 07/30/22 03:36 Eos # (Auto) 0.0 10^3/uL (0.0-0.8) 07/30/22 03:36 Baso # (Auto) 0.0 10^3/uL (0.0-0.1) 07/30/22 03:36 Nucleated RBC % (auto) 0 % 07/30/22 03:36 Nucleated RBCs # 0.0 /100WBC 07/30/22 03:36 Sodium 131 mmol/L (136-145) L 07/30/22 03:36 Potassium 3.4 mmol/L (3.5-5.1) L 07/30/22 03:36 Chloride 97 mmol/L (98-107) L 07/30/22 03:36 Carbon Dioxide 22 mmol/L (22-29) 07/30/22 03:36 Anion Gap 15.4 (5-19) 07/30/22 03:36 BUN 7 mg/dL (6-20) 07/30/22 03:36 Creatinine 0.6 mg/dL (0.5-0.9) 07/30/22 03:36 GFR Calculation 108.1 mL/min (90-130) 07/30/22 03:36 Glucose 93 mg/dL (65-115) 07/30/22 03:36 Estimat Average Glucose 143 07/29/22 21:11 Hemoglobin A1c 6.6 % (4.0-6.0) H 07/29/22 21:11 Calculated Osmolality 270 mOsm/kg (285-295) L 07/30/22 03:36 Calcium 8.8 mg/dL (8.5-10.5) 07/30/22 03:36 Phosphorus 3.6 mg/dL (2.5-4.5) 07/29/22 21:11 Total Bilirubin 0.3 mg/dL (0.15-1.2) 07/29/22 21:11 AST 31 U/L (0-32) 07/29/22 21:11 ALT 36 U/L (0-33) H 07/29/22 21:11 Alkaline Phosphatase 53 U/L (35-105) 07/29/22 21:11 Troponin T Baseline 6 ng/L (0-10) 07/29/22 21:11 Troponin T 120 Minute 6.00 ng/L (0-10) 07/29/22 23:05 Delta Troponin T 0 ABS# (0-10) 07/29/22 23:05 Troponin T Hi Sens 6Hr 6.00 ng/L (0-10) 07/30/22 03:36 Troponin T Hi Sens 6Hr Delta 0 ng/L (0-12) 07/30/22 03:36 Total Protein 7.4 g/dL (6.6-8.7) 07/29/22 21:11 Albumin 4.4 g/dL (3.5-5.2) 07/29/22 21:11 Globulin 3.0 g/dL (1.3-4.6) 07/29/22 21:11 Triglycerides 119 mg/dL (0-150) 07/29/22 21:11 Cholesterol 155 mg/dL (0-200) 07/29/22 21:11 LDL Cholesterol, Calc 95 mg/dL (50-129) 07/29/22 21:11 HDL Cholesterol 36 mg/dL (60-100) L 07/29/22 21:11 LDL/HDL Ratio 2.64 RATIO (0.00-3.22) 07/29/22 21:11 Cholesterol/HDL Ratio 4.31 mg/dL (0.0-4.40) 07/29/22 21:11 Vitals Last Vital Signs Temp 98.6 F 07/30/22 07:52 Pulse 65 07/30/22 10:47 Resp 22 H 07/30/22 10:47 BP 121/81 07/30/22 10:47 Pulse Ox 94 07/30/22 10:47 O2 Del Method 07/30/22 10:47 Discharge Plan Discharge Patient Disposition: Home Condition: Stable Prescriptions: New aspirin 81 mg Tablet,Delayed Release (Dr/Ec) 81 mg PO DAILY Qty: 90 1RF Continued fluoxetine 10 mg capsule 20 mg PO QAM Dose Instruction: TAKE 1 CAPSULE BY MOUTH DAILY atorvastatin 40 mg tablet 40 mg PO QAM lisinopril-hydrochlorothiazide 10-12.5 mg tablet 1 tab PO QAM metoprolol tartrate 25 mg tablet 25 mg PO BID albuterol sulfate 90 mcg/actuation HFA aerosol inhaler 2 puff inhalation Q6H PRN (Reason: Bronchospasm) Flovent HFA 110 mcg/actuation HFA aerosol inhaler 1 puff inhalation BID PRN (Reason: unknown) No Action (DME) Accu-Chek Guide test strips Strip See Rx Instructions .Route Qty: 100 1RF Rx Instructions: BID (DME) lancets [Accu-Chek Softclix Lancets] Misc See Rx Instructions .Route Qty: 200 0RF Rx Instructions: BID (DME) blood-glucose meter Kit See Rx Instructions .Route Qty: 1 0RF Rx Instructions: As directed Discharge Orders: Discharge Order (Routine); Ordered 07/30/22 Ordered By: Keny Oquendo Referrals: Keny Oquendo M.D [Physician] - 2 months (Your appointment with Dr. Oquendo will be scheduled at your August 08 appointment. Thank you.) Penelope Paz FNP [Nurse Practitioner] - 08/08/22 1:00 pm () Discharge Diet: Cardiac Discharge Activity: Increase activity as tolerated Discharge Attestations Time Spent in Discharge Care*: greater than 30 min Quality Metrics Clinical Quality Measures [ No reported AMI, CVA or VTE this stay] Coding Level of Care Code Acute Chg FW DC note Diagnoses Chest pain R07.9 Tobacco abuse Z72.0 Hypertension I10 Hypertension type: essential hypertension ASHD (arteriosclerotic heart disease) I25.10 Dyslipidemia E78.5
--- NOTE | 2022-07-30 15:30 | PC.NURSE ---
TR band removed. No hematoma, swelling, or excess bleeding noted. Pt tolerated well.
--- NOTE | 2022-07-30 15:45 | PC.NURSE ---
Pt discharged home. Pts IV removed no redness, swelling or excess bleeding noted. Pts discharge instructions given along with prescriptions and follow up appointments. Pt had no c/o pain or discomfort at the time of discharge. Pt transferred out via wheelchair accompanied by family and staff.
== END 2022-07-30 15:45 | disposition home or self-care (01) ==
PROVIDERS: Admitting Provider Internal Medicine; PCP Registered Nurse; Visit Provider Internal Medicine
DX: I25.10 Atherosclerotic heart disease of native coronary artery without angina pectoris (principal); R07.9 Chest pain, unspecified; F17.210 Nicotine dependence, cigarettes, uncomplicated; I10 Essential (primary) hypertension; E78.5 Hyperlipidemia, unspecified; Z79.82 Long term (current) use of aspirin; I25.2 Old myocardial infarction; Z95.5 Presence of coronary angioplasty implant and graft
CPT/HCPCS: 36415; 80048; 80053; 80061; 83036; 84100; 84484; 85025; 93005; 93306; 93458; 99152; 99153; C1769; C1887; C1894; G0378; G0379; J1644; J2250; J3010; J3490; J7030; Q0163; Q9967

== ENCOUNTER → 2022-11-18 14:00 | Outpatient (BNVA) | payer MEDICAID, SELFPAY | PROVIDERS: PCP Registered Nurse; Visit Provider Registered Nurse | DX: I10 Essential (primary) hypertension (principal); E11.9 Type 2 diabetes mellitus without complications; F41.9 Anxiety disorder, unspecified; F32.9 Major depressive disorder, single episode, unspecified; E78.5 Hyperlipidemia, unspecified | CPT/HCPCS: 80053; 83036; 85025 ==

== ENCOUNTER 2022-12-03 09:30 | Emergency (ER) | payer MEDICAID, SELFPAY ==
[2022-12-03 09:39] VITALS: BP 190/106; PULSE 60; RESP 18; TEMP 36.7; O2SAT 100; BMI 28.7
--- NOTE | 2022-12-03 09:42 | CT_ITS ---
WS: [id number] CT ABDOMEN AND PELVIS WITH CONTRAST HISTORY: L sided/lower abdominal pains TECHNIQUE: Imaging performed of the abdomen and pelvis with IV contrast. Single phase imaging of the abdomen. Coronal and sagittal reformats are submitted. All CT scans at [facility] use at [facility] one of these dose optimization techniques: automated exposure control; mA and/or kV adjustment per patient size (includes targeted exams where dose is matched to clinical indication); or iterative re construction. IV CONTRAST: Omnipaque 350; 100 mL IV. Oral contrast: No DLP: 556.48 mGy.cm COMPARISON: 11/20/2016 Lower thorax: Benign calcified granuloma RIGHT lung base. Heart is normal size. No hiatal hernia. Liver/biliary system: Normal size with no intrahepatic dilatation. Gallbladder: Normal. No gallstones or wall thickening. No pericholecystic fluid. Pancreas: Normal size pancreas and pancreatic duct. No adjacent inflammation. Spleen: Normal size spleen. No mass or infarct. Adrenal glands: Normal. Right kidney: Normal. Left kidney: Normal. Aorta: Mild atherosclerosis with no aneurysm. Atherosclerotic plaque continues into the iliac arterie s. Significant amount of plaque in the common iliac arteries with calcification and narrowing of the lumen. High-grade stenosis involving the LEFT common iliac artery with adjacent inflammation. Lymphadenopathy: None. Free fluid: None. GI tract: Normal stomach. No small bowel obstruction. Normal appendix. Numerous diverticula beginning in the descending colon through the sigmoid. There is a significant stricture involving the sigmoid colon with adjacent inflammation. Increased soft tissue and heterogeneity involving the sigmoid. Ther e is pericolonic inflammation and numerous diverticula. Segment of abnormality extends over a length of approximately 7.5 cm. Contiguous inflammation extends superiorly along the LEFT psoas muscle. Ther e is mild dilatation with inflammation surrounding the LEFT ovarian vein suspicious for thrombosis wh ich is probably related to the contiguous acute diverticulitis. Abdominal wall: Unremarkable abdominal wall. No hernia. Pelvis: Moderately enlarged uterus measures at least 10 cm in length. There is heterogeneity within t he uterus. LEFT ovary contains several small follicles. Bladder is negative. Bones: Moderate degenerative disc disease at L5-S1. CT/CT abdomen pelvis w con* [id number] IMPRESSION: 1. Acute inflammatory process involving the sigmoid colon extending over a gina gth of 7.5 cm. Suspect acute sigmoid diverticulitis with high-grade narrowing o f the lumen and pericolonic inflammation. No free air and no abscess at this ti me. 2. The inflammatory process contiguous from the sigmoid diverticulitis extends superiorly and does appear to be causing inflammation surrounding the LEFT ova leo vein. Possible thrombosis due to the dilatation within the ovarian vein. 3. Additional significant calcified and noncalcified atherosclerotic plaque wi th high-grade stenosis involving the LEFT common iliac artery. 4. Normal appendix. 5. Mild uterine enlargement.
--- NOTE | 2022-12-03 09:43 | ED_ITS ---
This chart is being signed as part of departmental protocol. This patient was seen and evaluated by the physicians captain assistant in the emergency department. I did not personally see or evaluate this patient. I did briefly discuss current findings with the physician's captain assistant and made recommendations as to consultations which she completed as recommended. I agree with the plan of care as outlined in this chart. HPI - Abdominal Pain General: Chief Complaint: Abdominal Pain Stated Complaint: Abd pain Time Seen by Provider: 12/03/22 09:31 Source: patient Mode of arrival: ambulatory Limitations: no limitations History of Present Illness: Patient is a 47-year-old female presents to ED today with a complaint of left- sided abdominal pain radiating down and across into her suprapubic and right lower quadrants. Patient states pain began yesterday and has progressively worsened. She states she did not sleep well yesterday evening secondary to the pain. She denies nausea, vomiting, diarrhea. She is not having any urinary complaints. She does state when she sits on the toilet to urinate or defecate she seems to have a lot of pain and pressure in her abdomen. Patient states she has had one similar episode previously in 2017. CT report was found in patient's historical data showing sigmoid colon diverticulosis and diverticulitis. Patient is not running fevers. Blood pressure elevated upon arrival. She states this is secondary to white coat syndrome . She states she has taken her blood pressure medications this morning. She states blood pressures normally run 130s over 80s at home. MD elicited complaint: abdominal pain Pertinent past history: diverticulitis Onset (ago): day(s) Pain Consistency: constant Location: RLQ, LLQ and Suprapubic Severity: severe Quality: cramping and sharp Migration to: RLQ and suprapubic Exacerbating factors: nothing Relieving factors: nothing Associated Symptoms: Reports no associated symptoms; Denies change in bowel habits, chills, diarrhea, dysuria, fever(s), hematochezia, melena, nausea and vomiting Related Data: Patient : No Review of Systems Const: Denies: fever(s), chills, body aches, fatigue or malaise Card: Denies: chest pain Resp: Denies: dyspnea GI: Reports: abdominal pain; Denies: nausea, vomiting, diarrhea, change in bowel habits, hematochezia or melena : Denies: flank pain, difficulty voiding, dysuria, urinary frequency, urinary urgency, urinary hesitancy, vaginal odor, vaginal bleeding, vaginal discharge or pelvic pain Musc: Denies: neck pain, back pain, extremity pain, joint pain, joint swelling or joint redness Skin/Breast: Denies: rash Neuro: Denies: headache(s), numbness in extremities, weakness in extremities, sensory changes or dizziness PFSH ED PFSH: Medical History Anxiety and depression ASHD (arteriosclerotic heart disease) Dyslipidemia History of [place] (myocardial infarction) Hypertension Irritable bowel syndrome Tobacco abuse Surgical History History of heart artery stent Family History Other Cancer Diabetes Heart disease Hypertension Thyroid disease Social History Smoking and tobacco status: current every day smoker cigarettes Packs smoked per day: 0.5 Years cigarettes smoked: 30 Alcohol intake: former Substance/Drug Use: never Adopted: No Caregiver/support person: No Lives independently: Yes Household members: spouse and children Marital status: Current occupational status: other Sexually active: Yes Do you think of yourself as: Straight/Heterosexual Current gender identity: Female Physical Exam Const: COMMON NORMALS: no acute distress, average body habitus, patient oriented x3, no limitations, healthy appearing, alert and well nourished GENERAL APPEARANCE: cooperative ORIENTATION/CONSCIOUSNESS: Yes awake, Yes oriented to person, Yes oriented to place and Yes oriented to time Resp: COMMON NORMALS: normal respiratory effort and clear to auscultation bilaterally AUSCULTATION: clear to auscultation bilaterally Cardio: COMMON NORMALS: regular rate and regular rhythm RATE: regular rate RHYTHM: regular rhythm GI: COMMON NORMALS: Normal to inspection, nondistended, normoactive bowel sounds present, Soft to palpation, No hepatosplenomegaly present and no masses INSPECTION: Yes normal to inspection AUSCULTATION: Yes normoactive bowel sounds PALPATION: Yes Soft to palpation, Yes Tenderness to palpation present (GI) (LUQ, LLQ, suprapubic, RLQ), Yes Guarding due to palpation present (GI), No Rigid due to palpation and Yes No hepatosplenomegaly present : COMMON NORMALS: Yes no CVA tenderness BLADDER/KIDNEY EXAM: Yes no CVA tenderness Back/Pelvis: COMMON NORMALS: no CVA tenderness Extremity: COMMON NORMALS: normal to inspection GENERAL: Yes normal exam except as noted Neuro: ERIKA COMA SCALE: document GCS findings [place] coma scale eye opening: Spontaneous [place] coma scale verbal response: Orientated [place] coma scale motor response: Obey commands Erika coma scale total score: 15 COMMON NORMALS: patient oriented x3, moves all extremities, no focal motor deficits and no sensory deficits noted SENSORIUM/ORIENTATION: Yes alert, Yes oriented to person, Yes oriented to place and Yes oriented to time Skin: COMMON NORMALS: no rashes or lesions noted GENERAL SKIN EXAM: no rashes or lesions noted Course Consultations: Consultation #1: Dr. Mo/OBGYN-recommends anticoagulation therapy Consultation #2: Dr. Murphy/general surgery-discussed CT results and recommendations for anticoagulation from [facility]; she felt like diverticulitis would not be a contraindication to anticoagulation and if patient was stable for diverticulitis standpoint she could be discharged with Cipro and Flagyl in addition to the anticoagulation recommended by [facility] Vital Signs: Vital signs: Vital Signs Temperature 98.0 F 12/03/22 09:39 Pulse Rate 60 12/03/22 09:39 Respiratory Rate 18 12/03/22 09:39 Blood Pressure 154/70 12/03/22 12:42 Pulse Oximetry 96 12/03/22 12:42 Oxygen Delivery Me thod Room Air 12/03/22 12:42 MDM - Abdominal Pain Medical Decision Making Blood pressure has improved while here. Based on history and physical exam I suspected diverticulitis. CT scan ordered to confirm this. She does have acute inflammatory sigmoid diverticulitis with narrowing and pericolonic inflammation. There is no free air or abscess. Inflammatory process seemed to extend superiorly causing inflammation around the left ovarian vein. Radiologist stated thrombus was possible due to the dilatation. I spoke to Dr. Mo on- call for [facility] who recommended treatment with anticoagulation. I spoke to Dr. Murphy on-call for general surgery who recommended discharge with Cipro/Flagyl and anticoagulation. Patient is not tachycardic or febrile. White count is 12.0. Case management referral was placed for follow-up for [facility] and general surgery. [facility] should be able to discuss with her how long she needs to stay on anticoagulation therapy. Strict return ED precautions given. Recommend bland liquid diet and advancing as tolerated. Case discussed with Dr. Soni. Lab Data 12/03/22 10:00 12/03/22 10:00 Labs/Radiology: Radiology Impressions Abdomen/Pelvis CT 12/03/22 09:42 IMPRESSION: 1. Acute inflammatory process involving the sigmoid colon extending over a length of 7.5 cm. Suspect acute sigmoid diverticulitis with high-grade narrowing of the lumen and pericolonic inflammation. No free air and no abscess at this time. 2. The inflammatory process contiguous from the sigmoid diverticulitis extends superiorly and does appear to be causing inflammation surrounding the LEFT ovarian vein. Possible thrombosis due to the dilatation within the ovarian vein. 3. Additional significant calcified and noncalcified atherosclerotic plaque with high-grade stenosis involving the LEFT common iliac artery. 4. Normal appendix. 5. Mild uterine enlargement. Laboratory Results WBC 12.0 10^3/uL (4.0-10.0) H 12/03/22 10:00 RBC 4.83 10^6/uL (4.1-5.3) 12/03/22 10:00 Hgb 15.1 g/dL (11.5-15.3) 12/03/22 10:00 Hct 43.3 % (37.0-47.0) 12/03/22 10:00 MCV 89.6 fl (81-99) 12/03/22 10:00 MCH 31.3 pg (28.0-34.0) 12/03/22 10:00 MCHC 34.9 g/dL (30.0-36.0) 12/03/22 10:00 RDW 12.9 % (12.1-15.1) 12/03/22 10:00 Plt Count 295 10^3/cmm (130-400) 12/03/22 10:00 MPV 8.8 fL (7.4-10.4) 12/03/22 10:00 Neut % (Auto) 83.1 % 12/03/22 10:00 Lymph % (Auto) 10.9 % 12/03/22 10:00 Petroleum % (Auto) 4.6 % 12/03/22 10:00 Eos % (Auto) 0.7 % 12/03/22 10:00 Baso % (Auto) 0.3 % 12/03/22 10:00 Neut # (Auto) 9.96 10^3/uL (1.8-7.7) H 12/03/22 10:00 Lymph # (Auto) 1.3 10^3/uL (0.8-4.8) 12/03/22 10:00 Petroleum # (Auto) 0.6 10^3/uL (0.2-0.9) 12/03/22 10:00 Eos # (Auto) 0.1 10^3/uL (0.0-0.8) 12/03/22 10:00 Baso # (Auto) 0.0 10^3/uL (0.0-0.1) 12/03/22 10:00 Nucleated RBC % (auto) 0 % 12/03/22 10:00 Nucleated RBCs # 0.0 /100WBC 12/03/22 10:00 Sodium 132 mmol/L (136-145) L 12/03/22 10:00 Potassium 3.8 mmol/L (3.5-5.1) 12/03/22 10:00 Chloride 96 mmol/L (98-107) L 12/03/22 10:00 Carbon Dioxide 25 mmol/L (22-29) 12/03/22 10:00 Anion Gap 14.8 (5-19) 12/03/22 10:00 BUN 6 mg/dL (6-20) 12/03/22 10:00 Creatinine 0.7 mg/dL (0.5-0.9) 12/03/22 10:00 GFR Calculation 90.5 mL/min (90-130) 12/03/22 10:00 Glucose 99 mg/dL (65-115) 12/03/22 10:00 Calculated Osmolality 272 mOsm/kg (285-295) L 12/03/22 10:00 Calcium 9.3 mg/dL (8.5-10.5) 12/03/22 10:00 Total Bilirubin 0.9 mg/dL (0.15-1.2) 12/03/22 10:00 AST 19 U/L (0-32) 12/03/22 10:00 ALT 32 U/L (0-33) 12/03/22 10:00 Alkaline Phosphatase 74 U/L (35-105) 12/03/22 10:00 Total Protein 8.2 g/dL (6.6-8.7) 12/03/22 10:00 Albumin 4.7 g/dL (3.5-5.2) 12/03/22 10:00 Globulin 3.5 g/dL (1.3-4.6) 12/03/22 10:00 Lipase 36 U/L (13-60) 12/03/22 10:00 HCG, Qual Negative (Negative) 12/03/22 10:00 Urine Color Yellow (Yellow) 12/03/22 10:00 Urine Appearance Clear (CLEAR) 12/03/22 10:00 Urine pH 6 (5-7) 12/03/22 10:00 Ur Specific [place] 1.015 (1.005-1.030) 12/03/22 10:00 Urine Protein Neg (Negative) 12/03/22 10:00 Urine Glucose (UA) Norm (Normal) 12/03/22 10:00 Urine Ketones Negative (Negative) 12/03/22 10:00 Urine Blood 2+ (Negative) H 12/03/22 10:00 Urine Nitrate Negative (Negative) 12/03/22 10:00 Urine Bilirubin Neg (Negative) 12/03/22 10:00 Urine Urobilinogen Norm mg/dL (Negative) 12/03/22 10:00 Ur Leukocyte Esterase Negative (Negative) 12/03/22 10:00 Urine RBC 0-4 /hpf (0-2) H 12/03/22 10:00 Urine WBC 0-4 /hpf (0-5) H 12/03/22 10:00 Ur Squamous Epith Cells 10-15 /hpf (0-5) H 12/03/22 10:00 Amorphous Sediment Not Reportable 12/03/22 10:00 Urine Bacteria Trace /hpf (NONE) 12/03/22 10:00 Urine Mucus Trace /hpf 12/03/22 10:00 Discharge Plan Discharge Patient Disposition: Home Clinical Impression: Diverticulitis, Thrombosis of ovarian vein Condition: Stable Prescriptions: New hydrocodone-acetaminophen 5-325 mg tablet 1 tab PO Q6H PRN (Reason: pain) Qty: 14 0RF metronidazole 500 mg tablet 500 mg PO BID 7 Days Qty: 14 0RF Cipro 500 mg tablet 500 mg PO Q12H Qty: 14 0RF Eliquis DVT-PE Treat 30D Start 5 mg (74 tabs) tablets,dose pack See Rx Instructions .ROUTE .COMPLEX Qty: 74 0RF Rx Instructions: orally per package directions No Action (DME) lancets [Accu-Chek Softclix Lancets] Misc See Rx Instructions .Route Qty: 200 0RF Rx Instructions: BID (DME) blood-glucose meter Kit See Rx Instructions .Route Qty: 1 0RF Rx Instructions: As directed lisinopril-hydrochlorothiazide 10-12.5 mg tablet 1 tab PO QAM 90 Days Qty: 90 1RF fluoxetine 20 mg capsule 20 mg PO DAILY 90 Days Qty: 90 1RF (DME) Accu-Chek Guide test strips Strip See Rx Instructions .Route Qty: 100 1RF Rx Instructions: BID albuterol sulfate 90 mcg/actuation HFA aerosol inhaler 2 puff inhalation Q6H PRN (Reason: Bronchospasm) fluticasone propionate [Flovent HFA] 110 mcg/actuation HFA aerosol inhaler 1 puff inhalation BID PRN (Reason: unknown) aspirin 81 mg Tablet,Delayed Release (Dr/Ec) 81 mg PO DAILY Qty: 90 1RF atorvastatin 40 mg tablet 40 mg PO DAILY buspirone 5 mg tablet 5 mg PO DAILY metoprolol tartrate 25 mg tablet 25 mg PO DAILY Discharge Orders: Discharge ED (Routine); Ordered 12/03/22 Ordered By: Nighat Ayers Referrals: Ricardo Solano, DIRECTOR RETIREMENT [Primary Care Provider] - Patient Instructions: Apixaban (By mouth) (Eliquis), Diverticulitis (DC), Diverticulitis Diet (ED), Opioid Safety, Pain Management Activity Restrictions/Additional Instructions: As we discussed case management should reach out to you shortly to set you up with your [facility] appointment for the ovarian vein thrombus that was found as well as GI for further follow-up for the diverticulitis to ensure resolution. You need to return to the emergency department for worsening abdominal pain, uncontrollable pain, repetitive episodes of vomiting, bloody diarrhea, abnormal or severe bleeding, inability to pass stool or gas, fevers, generally feeling worse or unwell, or any other concerns you may have. I hope you begin to feel better soon. Coding Level of Care Code ED Legal Service Specialist for Tom Swanson
[2022-12-03] MEDS: sodium chloride 0.9% 1,000 ML 999 ML IV (10:01)
[2022-12-03] MEDS: ondansetron 2 mg/ML SDV 2 mL 4 MG IVP (10:02)
[2022-12-03] MEDS: morphine 4 mg/mL SDV 1 mL IVP ×2 (10:02→12:37)
[2022-12-03 10:11] VITALS: BP 140/71
[2022-12-03 10:16] LABS: Basophils % 0.3 %; Eosinophils # 0.1 10^3/uL (0.0-0.8); Eosinophils % 0.7 %; Hematocrit 43.3 % (37.0-47.0); Hemoglobin 15.1 g/dL (11.5-15.3); Lymphocytes # 1.3 10^3/uL (0.8-4.8); Lymphocytes % 10.9 %; Mean Corpuscular HGB Conc 34.9 g/dL (30.0-36.0); Mean Corpuscular Hemoglobin 31.3 pg (28.0-34.0); Mean Corpuscular Volume 89.6 fl (81-99); Mean Platelet Volume 8.8 fL (7.4-10.4); Monocytes # 0.6 10^3/uL (0.2-0.9); Monocytes % 4.6 %; Neutrophils # 9.96 10^3/uL (1.8-7.7); Neutrophils % 83.1 %; Nucleated Red Blood Cells % 0 %; Platelet Count 295 10^3/cmm (130-400); Red Blood Count 4.83 10^6/uL (4.1-5.3); Red Cell Distribution Width 12.9 % (12.1-15.1)
[2022-12-03 10:31] LABS: Alanine Aminotransferase 32 U/L (0-33); Albumin Level 4.7 g/dL (3.5-5.2); Alkaline Phosphatase 74 U/L (35-105); Anion Gap 14.8 (5-19); Aspartate Amino Transferase 19 U/L (0-32); Blood Urea Nitrogen 6 mg/dL (6-20); Calcium 9.3 mg/dL (8.5-10.5); Carbon Dioxide 25 mmol/L (22-29); Chloride 96 mmol/L (98-107); Globulin 3.5 g/dL (1.3-4.6); Glomerular Filtration Rate 90.5 mL/min (90-130); Glucose 99 mg/dL (65-115); Lipase 36 U/L (13-60); Osmolality Calculated 272 mOsm/kg (285-295); Potassium 3.8 mmol/L (3.5-5.1); Sodium 132 mmol/L (136-145); Total Bilirubin 0.9 mg/dL (0.15-1.2); Total Protein 8.2 g/dL (6.6-8.7)
[2022-12-03 10:33] LABS: HCG, Serum Qual Negative (Negative)
[2022-12-03 10:51] LABS: Add Urine Microscopic? YES; Bilirubin Urine Neg (Negative); Blood Urine 2+ (Negative); Glucose Urine UA Norm (Normal); Ketones Urine Negative (Negative); Leukocyte Esterase Urine Negative (Negative); Nitrate Urine Negative (Negative); Protein Urine Neg (Negative); Specific Gravity, Urine 1.015 (1.005-1.030); Urine Appearance Clear (CLEAR); Urine Color Yellow (Yellow); Urobilinogen Urine Norm (Negative); pH Urine 6 (5-7)
[2022-12-03 10:52] LABS: Bacteria Urine TRACE /hpf; RBC Urine 0-4 /hpf (0-2); WBC Urine 0-4 /hpf (0-5)
[2022-12-03] MEDS: iohexol 350 mg/mL 500 mL Btl (per mL) IV (10:52)
[2022-12-03 10:53] LABS: Mucus Urine TRACE /hpf
[2022-12-03] MEDS: metroNIDAZOLE IV 500 MG/100 ML PREMIX 100 MG IV (11:54)
[2022-12-03] MEDS: ciprofloxacin 400 MG/200 ML PREMIX 200 MG IV (12:38)
[2022-12-03 12:42] VITALS: BP 154/70; O2SAT 96
--- NOTE | 2022-12-04 09:36 | DCPLANNER ---
Addendum entered by Halley Mauricio 01/10/23 10:25: Patient had a follow up appointment scheduled with general surgery - patient did attend appointment. Addendum entered by Halley Mauricio 12/11/22 10:51: Patient has a follow up appointment scheduled for Saturday, December 31, 2022 at 8:[address] Alcantar at general surgery. Addendum entered by Halley Mauricio 12/10/22 09:37: Patient had a follow up appointment scheduled with [facility] - patient did attend appointment. Addendum entered by Halley Mauricio 12/05/22 15:43: Patient has a follow up appointment scheduled for Saturday, December 10, 2022 at 9:[address] Mo at [facility]. Original Note: insurance case manager had message to schedule a follow up appointment for patient with general surgery and [employer]. insurance case manager sent patients information to the front office staff at [facility] and general surgery. Patients information will be printed and reviewed. Clinics will call patient with appointment information.
== END 2022-12-03 13:56 | disposition home or self-care (01) ==
PROVIDERS: Emergency Provider Physician Assistant; PCP Registered Nurse
DX: K57.32 Diverticulitis of large intestine without perforation or abscess without bleeding (principal); I82.890 Acute embolism and thrombosis of other specified veins
CPT/HCPCS: 74177; 80053; 81001; 83690; 84703; 85025; 96361; 96365; 96375; 96376; 99285; J0744; J2270; J2405; J3490; J7030; Q9967

== ENCOUNTER → 2023-01-02 12:20 | Outpatient (BNVA) | payer MEDICAID, SELFPAY | PROVIDERS: PCP Registered Nurse; Visit Provider Obstetrics & Gynecology | DX: R10.2 Pelvic and perineal pain (principal); N85.2 Hypertrophy of uterus; D25.9 Leiomyoma of uterus, unspecified | CPT/HCPCS: 76830 ==

== ENCOUNTER 2023-01-20 11:24 | Outpatient (CLI) | payer MEDICAID, SELFPAY ==
--- NOTE | 2023-01-20 11:45 | USR_ITS ---
PROCEDURE INFORMATION: Exam: US Duplex Bilateral Lower Extremity Arteries Exam date and time: 01/20/2023 11:56 AM Age: 48 years old Clinical indication: Pain; Leg, lower; Bilateral; Additional info: Peripheral claudication TECHNIQUE: Imaging protocol: Real-time ultrasound scan of the arteries of the bilateral lower extremities with 2-D hughes scale, color Doppler flow and spectral waveform analysis. Images documented and saved. COMPARISON: US transvaginal [id number] 01/02/2023 12:24 PM FINDINGS: Right common femoral artery: No occlusion or significant stenosis. Normal waveform. Right superficial femoral artery: No occlusion or significant stenosis. Normal waveform. Right popliteal artery: No occlusion or significant stenosis. Normal waveform. Right calf/foot arteries: No occlusion or significant stenosis in the visualized arteries. Normal waveforms. Dorsalis pedis artery is patent. MELLY: 1.1. Normal. Left common femoral artery: No occlusion or significant stenosis. Normal waveform. Left superficial femoral artery: No occlusion or significant stenosis. Normal waveform. Left popliteal artery: No occlusion or significant stenosis. Normal waveform. Left calf/foot arteries: No occlusion or significant stenosis in the visualized arteries. Normal waveforms. Dorsalis pedis artery is patent. MELLY: 1.2. Normal. US/[place] [id number] IMPRESSION: No stenosis or occlusion.
== END 2023-01-20 11:25 | disposition home or self-care (01) ==
LOC: RAD 11:26
PROVIDERS: PCP Registered Nurse; Visit Provider Internal Medicine
DX: I73.9 Peripheral vascular disease, unspecified (principal); I25.10 Atherosclerotic heart disease of native coronary artery without angina pectoris; M79.662 Pain in left lower leg; M79.661 Pain in right lower leg
CPT/HCPCS: 93925

== ENCOUNTER 2023-01-30 09:56 | Oncology outpatient (recurring) (ONCR) | payer MEDICAID, SELFPAY | END 2023-02-03 23:59 | disposition home or self-care (01) | LOC: ONCMED 09:57 | PROVIDERS: PCP Registered Nurse; Visit Provider Internal Medicine Medical Oncology | DX: Z53.9 Procedure and treatment not carried out, unspecified reason (principal) ==

== ENCOUNTER 2023-02-12 06:21 | Day surgery (SDC) | payer MEDICAID, SELFPAY ==
[2023-02-10 11:04] VITALS: BMI 29.2
[2023-02-12 06:25] VITALS: BP 179/94; PULSE 55; RESP 16; TEMP 36.2; O2SAT 99
[2023-02-12] MEDS: sodium chloride 0.9% 1,000 ML 30 ML IV (06:46)
--- NOTE | 2023-02-12 06:48 | PM.HP ---
Providers/Chief Complaint Primary Care Provider: ISAAC Rodriguez Chief Complaint: Z12.11 History of Present Illness Yana Vyas is a 48 year old female Medications/Allergies Home Medications Medication Instructions Recorded Confirmed Last Taken Type albuterol sulfate 90 mcg/actuation 2 puff inhalation Q6H PRN 07/30/22 02/12/23 Unknown History aerosol inhaler Bronchospasm aspirin 81 mg tablet,delayed 81 mg PO DAILY #90 tabs 07/30/22 02/12/23 02/10/23 Rx release blood-glucose meter #1 ea 08/07/22 01/30/23 Unknown Rx lancets (Accu-Chek Softclix #200 ea 08/07/22 01/30/23 Unknown Rx Lancets) blood sugar diagnostic (Accu-Chek #100 ea 10/07/22 01/30/23 Unknown Rx Guide test strips) lisinopril 10 1 tab PO QAM 90 days #90 tabs 11/18/22 02/12/23 02/10/23 Rx mg-hydrochlorothiazide 12.5 mg tablet atorvastatin 40 mg tablet 40 mg PO DAILY 12/03/22 02/12/23 02/10/23 History metoprolol tartrate 25 mg tablet 25 mg PO BID 12/31/22 02/12/23 02/12/23 History fluticasone propionate 110 1 puff inhalation BID PRN unknown 01/09/23 02/12/23 02/10/23 Rx mcg/actuation HFA aerosol inhaler #12 grams (Flovent HFA) buspirone 5 mg tablet See Rx Instructions .Route 01/23/23 02/12/23 02/10/23 Rx .COMPLEX #60 tabs fluoxetine 20 mg capsule 20 mg PO DAILY 01/30/23 02/12/23 02/10/23 History apixaban 5 mg tablet (Eliquis) 5 mg PO BID #180 tabs 02/07/23 02/12/23 02/10/23 Rx Allergies Allergy/AdvReac Type Severity Reaction Status Date / Time lisinopril Allergy ALGY-Rash Verified 02/10/23 11:05 PFSH Acute PFSH: Medical History Anxiety and depression ASHD (arteriosclerotic heart disease) Dyslipidemia History of [place] (myocardial infarction) Hypertension Irritable bowel syndrome Tobacco abuse Surgical History History of heart artery stent Hx of tubal ligation Family History Other Cancer Diabetes Heart disease Hypertension Thyroid disease Denies family history of Colon cancer Ovarian cancer Hypercholesteremia Breast cancer Uterine cancer Stroke Social History Smoking and tobacco status: current every day smoker Vitals/I&O/Wt Last Vital Signs Temp 97.1 F L 02/12/23 06:25 Pulse 55 L 02/12/23 06:25 Resp 16 02/12/23 06:25 BP 179/94 02/12/23 06:25 Pulse Ox 99 02/12/23 06:25 O2 Del Method Room Air 02/12/23 06:25 Weight last 48 hrs Weight 165 lb A&P Assessment and plan (1) Colon cancer screening: Plan Colonoscopy Attestations Medical Necessity Statement*: Home Coding Level of Care Code Acute Code for Chg Fwd Diagnoses Colon cancer screening Z12.11
[2023-02-12 06:51] LABS: Glucose Point of Care 125 mg/dL (70-110)
[2023-02-12 07:09] LABS: OR HCG Qualitative Urine Negative (Negative)
--- NOTE | 2023-02-12 07:43 | ANES.PREANE2 ---
Pre-Anesthetic Assessment Height/Weight: Height 1.6 m Weight 74.843 kg Temp Pulse Resp BP Pulse Ox O2 Del Method 97.1 F L 55 L 16 179/94 99 Room Air 02/12/23 06:25 02/12/23 06:25 02/12/23 06:25 02/12/23 06:25 02/12/23 06:25 02/12/23 06:25 Operation Date: 02/12/23 07:30 Proposed Procedures p Colonoscopy 71621,Z12.11(Not Applicable) - Niraj Alcantar DO Familial anesthetic complications: none Was Beta Srini taken within 24 hours: N/A Was Clonidine taken within 24 hours: N/A Last intake: Intake Last Liquid Date 02/11/23 Last Liquid Time 21:30 Last Solid Date 02/10/23 Last Solid Time 23:00 Social Tobacco and No alcohol Exam alert, oriented x 3, clear to auscultation bilaterally and regular rate & rhythm Airway Mallampati: Class II Dentition: false CV/HEM Coronary Artery Disease (stents), Deep Vein Thrombosis and Hypertension Metabolic Diabetes Mellitus Anesthetic Plan ASA status: 3 Anesthesia: MAC Risk of > 500 ml blood loss (7ml/kg in children): No Medications/Allergies Home Medications Medication Instructions Recorded Confirmed Last Taken Type albuterol sulfate 90 mcg/actuation 2 puff inhalation Q6H PRN 07/30/22 02/12/23 Unknown History aerosol inhaler Bronchospasm aspirin 81 mg tablet,delayed 81 mg PO DAILY #90 tabs 07/30/22 02/12/23 02/10/23 Rx release blood-glucose meter #1 ea 08/07/22 01/30/23 Unknown Rx lancets (Accu-Chek Softclix #200 ea 08/07/22 01/30/23 Unknown Rx Lancets) blood sugar diagnostic (Accu-Chek #100 ea 10/07/22 01/30/23 Unknown Rx Guide test strips) lisinopril 10 1 tab PO QAM 90 days #90 tabs 11/18/22 02/12/23 02/10/23 Rx mg-hydrochlorothiazide 12.5 mg tablet atorvastatin 40 mg tablet 40 mg PO DAILY 12/03/22 02/12/23 02/10/23 History metoprolol tartrate 25 mg tablet 25 mg PO BID 12/31/22 02/12/23 02/12/23 History fluticasone propionate 110 1 puff inhalation BID PRN unknown 01/09/23 02/12/23 02/10/23 Rx mcg/actuation HFA aerosol inhaler #12 grams (Flovent HFA) buspirone 5 mg tablet See Rx Instructions .Route 01/23/23 02/12/23 02/10/23 Rx .COMPLEX #60 tabs fluoxetine 20 mg capsule 20 mg PO DAILY 01/30/23 02/12/23 02/10/23 History apixaban 5 mg tablet (Eliquis) 5 mg PO BID #180 tabs 02/07/23 02/12/23 02/10/23 Rx Allergies Allergy/AdvReac Type Severity Reaction Status Date / Time lisinopril Allergy ALGY-Rash Verified 02/10/23 11:05 Current Medications Generic Name Dose Route Start Last Admin Trade Name Freq PRN Reason Stop Dose Admin Sodium Chloride 1,000 mls @ 30 mls/hr 02/12/23 06:30 02/12/23 06:46 Sodium Chloride 0.9% IV 02/13/23 06:29 30 mls/hr .Q24H CLARY Administration PFSH Anesthesia Medical History Anxiety and depression ASHD (arteriosclerotic heart disease) Dyslipidemia History of [place] (myocardial infarction) Hypertension Irritable bowel syndrome Tobacco abuse Surgical History History of heart artery stent Hx of tubal ligation Family History Other Cancer Diabetes Heart disease Hypertension Thyroid disease Denies family history of Colon cancer Ovarian cancer Hypercholesteremia Breast cancer Uterine cancer Stroke Social History Smoking and tobacco status: current every day smoker Data Anesthesia Cardiac Studies: Echocardiogram 07/29/22
[2023-02-12 08:04] VITALS: BP 133/83; PULSE 55; RESP 20; TEMP 36.2; O2SAT 98
[2023-02-12 08:17] VITALS: BP 153/94; PULSE 50; RESP 20; O2SAT 98
--- NOTE | 2023-02-12 08:30 | ANE.PACU2 ---
Inpatient post-anesthesia follow up: Airway intact: Yes Vital signs: Temperature 97.2 F Pulse Rate 50 Respiratory Rate 20 Blood Pressure 153/94 Pulse Oximetry 98 Oxygen Delivery Me thod Nasal Cannula Oxygen Flow Rate 3 Fraction of Inspir ed Oxygen Hydration adequate: Yes Nausea and vomiting: No Pain level: 1 Mental status: Baseline
== END 2023-02-12 08:34 | disposition home or self-care (01) ==
PROVIDERS: PCP Registered Nurse; Visit Provider Surgery
PROC: 0DJD8ZZ Inspection of Lower Intestinal Tract, Via Natural or Artificial Opening Endoscopic (ICD-10-PCS; CPT 45378; principal; 2023-02-12 07:30)
DX: Z12.11 Encounter for screening for malignant neoplasm of colon (principal); K57.30 Diverticulosis of large intestine without perforation or abscess without bleeding; Z79.82 Long term (current) use of aspirin; Z79.01 Long term (current) use of anticoagulants; F32.A Depression, unspecified; F41.9 Anxiety disorder, unspecified; I10 Essential (primary) hypertension; E78.5 Hyperlipidemia, unspecified; I25.10 Atherosclerotic heart disease of native coronary artery without angina pectoris; F17.200 Nicotine dependence, unspecified, uncomplicated; Z95.5 Presence of coronary angioplasty implant and graft; Z86.718 Personal history of other venous thrombosis and embolism; E11.9 Type 2 diabetes mellitus without complications
CPT/HCPCS: 36416; 45378; 81025; 82962; 84703; J2704; J7030

== ENCOUNTER 2023-02-25 10:00 | Observation (INO) | payer MEDICAID, SELFPAY ==
[2023-02-21 09:43] VITALS: BMI 27.4
[2023-02-21 10:16] LABS: Basophils % 0.5 %; Eosinophils # 0.1 10^3/uL (0.0-0.8); Hematocrit 38.7 % (37.0-47.0); Hemoglobin 13.5 g/dL (11.5-15.3); Lymphocytes # 1.3 10^3/uL (0.8-4.8); Lymphocytes % 20.2 %; Mean Corpuscular HGB Conc 34.9 g/dL (30.0-36.0); Mean Corpuscular Hemoglobin 31.5 pg (28.0-34.0); Mean Corpuscular Volume 90.2 fl (81-99); Mean Platelet Volume 8.9 fL (7.4-10.4); Monocytes # 0.4 10^3/uL (0.2-0.9); Monocytes % 6.3 %; Neutrophils # 4.64 10^3/uL (1.8-7.7); Neutrophils % 70.8 %; Nucleated Red Blood Cells % 0 %; Platelet Count 256 10^3/cmm (130-400); Red Blood Count 4.29 10^6/uL (4.1-5.3); Red Cell Distribution Width 13.2 % (12.1-15.1); White Blood Count 6.5 10^3/uL (4.0-10.0)
[2023-02-21 10:26] LABS: INR 0.98 (0.8-1.2)
[2023-02-21 10:31] LABS: Alanine Aminotransferase 24 U/L (0-33); Albumin Level 4.5 g/dL (3.5-5.2); Alkaline Phosphatase 57 U/L (35-105); Anion Gap 13.9 (5-19); Aspartate Amino Transferase 21 U/L (0-32); Blood Urea Nitrogen 7 mg/dL (6-20); Calcium 9.2 mg/dL (8.5-10.5); Carbon Dioxide 27 mmol/L (22-29); Chloride 99 mmol/L (98-107); Globulin 2.8 g/dL (1.3-4.6); Glomerular Filtration Rate 107.6 mL/min (90-130); Glucose 168 mg/dL (65-115); Osmolality Calculated 284 mOsm/kg (285-295); Potassium 3.9 mmol/L (3.5-5.1); Sodium 136 mmol/L (136-145); Total Bilirubin 0.4 mg/dL (0.15-1.2); Total Protein 7.3 g/dL (6.6-8.7)
[2023-02-21 10:34] LABS: Urine Appearance Cloudy (CLEAR); Urine Color Yellow (Yellow); pH Urine 7 (5-7)
[2023-02-21 10:35] LABS: Add Urine Microscopic? YES; Bacteria Urine TRACE /hpf; Bilirubin Urine Neg (Negative); Blood Urine Trace (Negative); Glucose Urine UA Norm (Normal); Ketones Urine Negative (Negative); Leukocyte Esterase Urine Trace (Negative); Nitrate Urine Negative (Negative); Protein Urine Neg (Negative); RBC Urine 0-4 /hpf (0-2); Squamous Epithelial Cell Urine 15-25 /hpf (0-5); Urobilinogen Urine Norm (Negative); WBC Urine 0-4 /hpf (0-5)
--- NOTE | 2023-02-21 16:00 | ANES.PREANE2 ---
Pre-Anesthetic Assessment Height/Weight: Height 1.6 m Weight 70.307 kg Preop Diagnosis: uterine fibroid, pelvic pain Operation Date: 02/25/23 07:00 Proposed Procedures p Total vaginal hysterectomy 46671,D25.9,R10.2(Not Applicable) - Rajinder Mo MD Familial anesthetic complications: none Was Beta Srini taken within 24 hours: Yes Was Clonidine taken within 24 hours: N/A Social Tobacco and No alcohol Exam alert, oriented x 3 and regular rate & rhythm Airway Submandibular: within normal limits Cervical ROM: within normal limits Mallampati: Class II Dentition: false Pulmonary Chronic Obstructive Pulmonary Disease CV/HEM Coronary Artery Disease, Hypertension and Myocardial Infarction Neuropsych Anxiety and Depression Anesthetic Plan ASA status: 3 Anesthesia: General Medications/Allergies Home Medications Medication Instructions Recorded Confirmed Last Taken Type albuterol sulfate 90 mcg/actuation 2 puff inhalation Q6H PRN 07/30/22 02/21/23 02/21/23 History aerosol inhaler Bronchospasm aspirin 81 mg tablet,delayed 81 mg PO DAILY #90 tabs 07/30/22 02/21/23 02/20/23 Rx release blood-glucose meter #1 ea 08/07/22 02/17/23 Unknown Rx lancets (Accu-Chek Softclix #200 ea 08/07/22 02/17/23 Unknown Rx Lancets) blood sugar diagnostic (Accu-Chek #100 ea 10/07/22 02/17/23 Unknown Rx Guide test strips) lisinopril 10 1 tab PO QAM 90 days #90 tabs 11/18/22 02/21/23 02/20/23 Rx mg-hydrochlorothiazide 12.5 mg tablet atorvastatin 40 mg tablet 40 mg PO DAILY 12/03/22 02/21/23 02/20/23 History metoprolol tartrate 25 mg tablet 25 mg PO BID 12/31/22 02/21/23 02/21/23 History fluticasone propionate 110 1 puff inhalation BID PRN unknown 01/09/23 02/21/23 02/20/23 Rx mcg/actuation HFA aerosol inhaler #12 grams (Flovent HFA) buspirone 5 mg tablet See Rx Instructions .Route 01/23/23 02/21/23 02/20/23 Rx .COMPLEX #60 tabs fluoxetine 20 mg capsule 20 mg PO DAILY 01/30/23 02/21/23 02/20/23 History apixaban 5 mg tablet (Eliquis) 5 mg PO BID #180 tabs 02/07/23 02/21/23 02/20/23 Rx Allergies Allergy/AdvReac Type Severity Reaction Status Date / Time lisinopril Allergy ALGY-Rash Verified 02/21/23 09:40 [facility] Anesthesia Medical History Anxiety and depression ASHD (arteriosclerotic heart disease) Dyslipidemia History of [place] (myocardial infarction) Hypertension Irritable bowel syndrome Tobacco abuse Surgical History History of heart artery stent Hx of tubal ligation Family History Other Cancer Diabetes Heart disease Hypertension Thyroid disease Denies family history of Colon cancer Ovarian cancer Hypercholesteremia Breast cancer Uterine cancer Stroke Social History Smoking and tobacco status: current every day smoker Female Reproductive History Date of last menstrual period: 02/04/23 Data Anesthesia 02/21/23 10:00 02/21/23 10:00 Short CBC 02/21/23 Range/Units 10:00 WBC 6.5 (4.0-10.0) 10^3/uL Hgb 13.5 (11.5-15.3) g/dL Hct 38.7 (37.0-47.0) % MCV 90.2 (81-99) fl Plt Count 256 (130-400) 10^3/cmm Neut % (Auto) 70.8 % Neut # (Auto) 4.64 (1.8-7.7) 10^3/uL BMP 02/21/23 10:00 Sodium 136 Potassium 3.9 Chloride 99 Carbon Dioxide 27 BUN 7 Creatinine 0.6 Glucose 168 H Calcium 9.2 Liver Function 02/21/23 Range/Units 10:00 Total Bilirubin 0.4 (0.15-1.2) mg/dL AST 21 (0-32) U/L ALT 24 (0-33) U/L Alkaline Phosphatase 57 (35-105) U/L Albumin 4.5 (3.5-5.2) g/dL Urine 02/21/23 Range/Units 09:30 Urine Color Yellow (Yellow) Urine Appearance Cloudy A (CLEAR) Urine pH 7 (5-7) Ur Specific [place] 1.010 (1.005-1.030) Urine Protein Neg (Negative) Urine Glucose (UA) Norm (Normal) Urine Ketones Negative (Negative) Urine Nitrate Negative (Negative) Urine Bilirubin Neg (Negative) Ur Leukocyte Esterase Trace H (Negative) Urine RBC 0-4 H (0-2) /hpf Urine WBC 0-4 H (0-5) /hpf Coags 02/21/23 10:00 PT 13.20 INR 0.98 Cardiac Studies: Echocardiogram 07/29/22
[2023-02-25] VITALS (18 sets, daily range): BP systolic 81–145; BP diastolic 45–88; PULSE 48–67; RESP 14–17; TEMP 36.3–36.7; O2SAT 92–100
[2023-02-25] MEDS: scopolamine 1.5 Patch 1 PATCH TRANSDERMA (06:13)
[2023-02-25] MEDS: enoxaparin 40 mg/0.4 mL Syringe SUBCUT (06:13)
[2023-02-25] MEDS: sodium chloride 0.9% 500 ML IV (06:13)
[2023-02-25 06:31] LABS: OR HCG Qualitative Urine Negative (Negative)
--- NOTE | 2023-02-25 06:59 | W.PM.OPSUD ---
Surgery/Procedure H&P Update DATE OF PROCEDURE: February 25, 2023 DATE H&P PERFORMED: 02/17/23 H&P UPDATE INFORMATION: I have reviewed H&P completed within last 30 days, I have examined patient prior to procedure and No changes to prior documentation PREOP DIAGNOSIS: uterine fibroid, pelvic pain PLANNED PROCEDURE: Operation Date: 02/25/23 07:00 Proposed Procedures p Total vaginal hysterectomy 32744,D25.9,R10.2(Not Applicable) - Rajinder Mo MD
[2023-02-25] MEDS: ceFAZolin 2,000 MG in sodium chloride 0.9% (plus) 50 ML 100 MG IV (07:12)
--- NOTE | 2023-02-25 07:31 | P.ANESUD_ITS ---
Pre-Anesthetic Update Pre-Anesthetic Assessment: Date of Surgery/Procedure: 02/25/23 Preop Jessica gnosis: uterine fibroid, pelvic pain Proposed Procedure: Operation Date: 02/25/23 07:00 Proposed Procedures p Total vaginal hysterectomy 28842,D25.9,R10.2(Not Applicable) - Rajinder Mo MD Any changes to Pre-Anesthetic Assessment?: No Last Intake: Intake Last Liquid Date 02/24/23 Last Liquid Time 20:00 Last Solid Date 02/24/23 Last Solid Time 20:00 Labs Last 48hrs: Blood Bank 02/25/23 06:09 Blood Type A Positive Rho(D) Type Positive Vitals: Temperature 98.1 F 02/25/23 06:06 Temperature Source Temporal Artery S can 02/25/23 06:06 Pulse Rate 54 L 02/25/23 06:06 Respiratory Rate 16 02/25/23 06:06 Blood Pressure 145/88 02/25/23 06:06 Blood Pressure Stacey n 107 02/25/23 06:06 Pulse Oximetry 98 02/25/23 06:06 Oxygen Delivery Me thod Room Air 02/25/23 06:06 Exam: Pre-Anes Outpt Exam: alert, oriented x 3, clear to auscultation bilaterally and regular rate & rhythm Cardiac Studies: Echocardiogram 07/29/22
[2023-02-25] MEDS: lidocaine-epi 2% 20 mL INJ INJECTION (07:48)
--- NOTE | 2023-02-25 09:20 | PM.OP ---
Operative Report Date of procedure: February 25, 2023 Pre-op diagnosis: Preop Diagnosis uterine fibroid, pelvic pain Post-op diagnosis: Same Procedure done: Total vaginal hysterectomy Surgeon: Rajinder Mo MD Estimated blood loss (mL): 300 IV fluids (mL): 100 Urine output (mL): 200 Complications: Bleeding Procedure: After informed consent and risks, benefits, indications and alternatives reviewed with the patient was taken to the operating room. The patient was placed in dorsal lithotomy position prepped, and draped in the usual sterile fashion. The pre-procedure timeout verifying the correct patient, procedure, site and side, could not requirements was performed and acknowledge by the OR team. A Wilson catheter was placed. A Bookwalter vaginal retractor was placed into the vagina in usual manner visualize the cervix. Cervix was grasped with a single tooth tenaculum and circumferentially infiltrated with 2% lidocaine with epinephrine. Then cervix was circumferentially incised with bovie and the bladder was dissected off the pubovesical cervical fascia anteriorly with a sponge stick and Metzenbaum scissors. The anterior peritoneal reflection was identified and the anterior cul-de-sac was entered sharply with Metzenbaum scissors. The same procedure was performed posteriorly and a posterior colpotomy was made through the posterior cul-de-sac space without difficulty and the posterior blade of the Bookwalter vaginal retractor was advanced posteriorly into the cul-de-sac. At this time, the left and right uterosacral ligaments were isolated and ligated with 0 Vicryl. The Voyant device was placed over the uterosacral ligaments on either side and was then used in a serial fashion up through the cardinal ligaments bilaterally cross-clamped, cut, and sealed with the Voyant device. Finally, the uterine arteries were cross-clamped, cut, sealed and ligated with the Voyant device. Hemostasis was assured. The broad ligaments were then serially clamped, sealed and cut with the Voyant device on both sides. Excellent hemostasis was visualized. Both cornua were clamped, sealed and cut with the Voyant device. Then the pedicles were then suture ligated with excellent hemostasis. The uterus was excised and submitted for pathologic evaluation. No other abnormalities were noted in the pelvic cavity. Good hemostasis was assure on both sides. Indigocarmine IV was given The peritoneum was then closed in a pursestring fashion with 0 Vicryl suture. The vaginal cuff angles were closed with [id number] #0 Vicryl suture on both sides and transfixed with the ipsilateral cardinal and uterosacral ligaments. The remainder of the vaginal cuff was closed with #0 Vicryl in a running locked fashion. At this time, instruments were removed from the vagina at hemostasis assured. Wilson catheter was then noted yielding blue urine. The patient was taken out of dorsal lithotomy position and awakened from the general anesthesia. The patient tolerated the procedure well and was taken to the PACU recovery room in a stable condition. Sponge, lap, needle and instruments counts were correct x3.
[2023-02-25] MEDS: HYDROmorphone 1 mg/mL INJ 1 mL 0.5 MG IVP (09:33)
[2023-02-25] MEDS: ondansetron 2 mg/ML SDV 2 mL 4 MG IVP (09:48)
[2023-02-25] MEDS: HYDROcodone-acetaminophen 5-325 mg Tablet PO ×2 (11:15→19:39)
[2023-02-25] MEDS: dextrose 5%-lactated ringers 1,000 ML 125 ML IV (11:18)
--- NOTE | 2023-02-25 13:58 | ANE.PACU2 ---
Inpatient post-anesthesia follow up: Airway intact: Yes Vital signs: Temperature 97.6 F Pulse Rate 58 Respiratory Rate 17 Blood Pressure 118/69 Pulse Oximetry 94 Oxygen Delivery Me thod Room Air Oxygen Flow Rate 93 Fraction of Inspir ed Oxygen Hydration adequate: Yes Nausea and vomiting: No Pain level: 3 Mental status: Baseline
[2023-02-25] MEDS: simethicone 80 mg Chew PO (15:13)
[2023-02-25] MEDS: metoprolol tartrate 25 mg Tablet PO (18:30)
[2023-02-25] MEDS: BuSPIRONE 10 mg Tablet 5 MG PO (18:30)
[2023-02-25] MEDS: docusate sodium 100 mg Capsule PO (18:30)
[2023-02-25] MEDS: apixaban 5 mg Tablet PO (18:30)
[2023-02-26] MEDS: HYDROcodone-acetaminophen 5-325 mg Tablet PO ×2 (01:43→07:43)
[2023-02-26 04:00] VITALS: BP 151/84; PULSE 56; RESP 16; TEMP 37; O2SAT 98
[2023-02-26 05:03] LABS: Hematocrit 32.7 % (36-47); Mean Corpuscular HGB Conc 33.9 g/dL (30-55); Mean Corpuscular Hemoglobin 31.5 pg (27-33); Mean Corpuscular Volume 92.9 fl (85-98); Mean Platelet Volume 8.9 fL (7.4-10.4); Platelet Count 215 10^3/cmm (157-399); Red Blood Count 3.52 10^6/uL (3.85-5.65); Red Cell Distribution Width 13.7 % (12.1-15.1); White Blood Count 15.21 10^3/uL (3.29-11.43)
--- NOTE | 2023-02-26 07:24 | PM.OBGYDC ---
Discharge Providers BD SPECIAL EDUCATION TEACHER Date of Admission: 02/25/23 10:00 Date of Discharge: 02/26/23 Attending Provider at Admission: Rajinder Mo MD Attending Provider at Discharge: Rajinder Mo MD Primary BD SPECIAL EDUCATION TEACHER: Rajinder Mo MD Primary Care Provider: ISAAC Rodriguez Reason for Visit Reason for Visit: Surgery Brief History: Ms. Vyas is a 48 year old with a uterine fibroid and history of pelvic pain Hospital Course Hospital Course Mrs. Vyas 48 years old female admitted for planned total vaginal hysterectomy. Total vaginal hysterectomy was performed without complications. Overnight observation was uneventful. She is afebrile hemodynamically stable postoperative day 1. Tolerating diet well. Ambulating without difficulty. She was counseled regarding pelvic rest for 6 weeks (no sex, no tampons, no vaginal douches). Return to the emergency room if any fever, increased bleeding or pain. Physical Exam Narrative: GA: Alert and oriented ?3. HEENT: WNL. Heart: Regular rate and rhythm. Lungs: Clear to auscultation bilaterally. Abdomen: Bowel sounds present, nontender. RASCHEL KNITTING MACHINE OPERATOR: spoltting bleeding. Extremities: No edema, no cyanosis, no calves pain. Urinary Catheter Management: Wilson: Cath Placed During This Visit: yes, but has since been removed by the nurse Reason for Continuing Indwelling Catheter: Accurate Measurement of Urinary Output in Critically Ill Patients Urinary Catheter Date of Insertion: 02/25/23 Urinary Catheter Time of Insertion: 07:32 Date Urinary Catheter Removed: 02/26/23 Time Urinary Catheter Discontinued: 05:04 History History History 6 Term 3 0 Miscarriages/Ectopic 3 Living Children 3 Discharge Data Studies Completed and Pending Pending at discharge Category Date Time Status Retype for Patiets ABO/Rh Routine Lab 02/25/23 07:23 Received Pathology: Surgical [PTH] Routine Pth 02/25/23 08:42 Received Laboratory Results WBC 15.21 10^3/uL (3.29-11.43) H 02/26/23 04:56 RBC 3.52 10^6/uL (3.85-5.65) L 02/26/23 04:56 Hgb 11.10 g/dL (11.27-16.99) L 02/26/23 04:56 Hct 32.7 % (36-47) L 02/26/23 04:56 MCV 92.9 fl (85-98) 02/26/23 04:56 MCH 31.5 pg (27-33) 02/26/23 04:56 MCHC 33.9 g/dL (30-55) 02/26/23 04:56 RDW 13.7 % (12.1-15.1) 02/26/23 04:56 Plt Count 215 10^3/cmm (157-399) 02/26/23 04:56 MPV 8.9 fL (7.4-10.4) 02/26/23 04:56 Neut % (Auto) 70.8 % 02/21/23 10:00 Lymph % (Auto) 20.2 % 02/21/23 10:00 [place] % (Auto) 6.3 % 02/21/23 10:00 Eos % (Auto) 2.0 % 02/21/23 10:00 Baso % (Auto) 0.5 % 02/21/23 10:00 Neut # (Auto) 4.64 10^3/uL (1.8-7.7) 02/21/23 10:00 Lymph # (Auto) 1.3 10^3/uL (0.8-4.8) 02/21/23 10:00 [place] # (Auto) 0.4 10^3/uL (0.2-0.9) 02/21/23 10:00 Eos # (Auto) 0.1 10^3/uL (0.0-0.8) 02/21/23 10:00 Baso # (Auto) 0.0 10^3/uL (0.0-0.1) 02/21/23 10:00 Nucleated RBC % (auto) 0 % 02/21/23 10:00 Nucleated RBCs # 0.0 /100WBC 02/21/23 10:00 PT 13.20 SECONDS (12.1-14.9) 02/21/23 10:00 INR 0.98 (0.8-1.2) 02/21/23 10:00 Sodium 136 mmol/L (136-145) 02/21/23 10:00 Potassium 3.9 mmol/L (3.5-5.1) 02/21/23 10:00 Chloride 99 mmol/L (98-107) 02/21/23 10:00 Carbon Dioxide 27 mmol/L (22-29) 02/21/23 10:00 Anion Gap 13.9 (5-19) 02/21/23 10:00 BUN 7 mg/dL (6-20) 02/21/23 10:00 Creatinine 0.6 mg/dL (0.5-0.9) 02/21/23 10:00 GFR Calculation 107.6 mL/min (90-130) 02/21/23 10:00 Glucose 168 mg/dL (65-115) H 02/21/23 10:00 Calculated Osmolality 284 mOsm/kg (285-295) L 02/21/23 10:00 Calcium 9.2 mg/dL (8.5-10.5) 02/21/23 10:00 Total Bilirubin 0.4 mg/dL (0.15-1.2) 02/21/23 10:00 AST 21 U/L (0-32) 02/21/23 10:00 ALT 24 U/L (0-33) 02/21/23 10:00 Alkaline Phosphatase 57 U/L (35-105) 02/21/23 10:00 Total Protein 7.3 g/dL (6.6-8.7) 02/21/23 10:00 Albumin 4.5 g/dL (3.5-5.2) 02/21/23 10:00 Globulin 2.8 g/dL (1.3-4.6) 02/21/23 10:00 Urine Color Yellow (Yellow) 02/21/23 09:30 Urine Appearance Cloudy (CLEAR) A 02/21/23 09:30 Urine pH 7 (5-7) 02/21/23 09:30 Ur Specific [place] 1.010 (1.005-1.030) 02/21/23 09:30 Urine Protein Neg (Negative) 02/21/23 09:30 Urine Glucose (UA) Norm (Normal) 02/21/23 09:30 Urine Ketones Negative (Negative) 02/21/23 09:30 Urine Blood Trace (Negative) H 02/21/23 09:30 Urine Nitrate Negative (Negative) 02/21/23 09:30 Urine Bilirubin Neg (Negative) 02/21/23 09:30 Urine Urobilinogen Norm mg/dL (Negative) 02/21/23 09:30 Ur Leukocyte Esterase Trace (Negative) H 02/21/23 09:30 Urine RBC 0-4 /hpf (0-2) H 02/21/23 09:30 Urine WBC 0-4 /hpf (0-5) H 02/21/23 09:30 Ur Squamous Epith Cells 15-25 /hpf (0-5) H 02/21/23 09:30 Amorphous Sediment Not Reportable 02/21/23 09:30 Urine Bacteria Trace /hpf (NONE) 02/21/23 09:30 Urine HCG, Qual Negative (Negative) 02/25/23 06:30 Blood Type A Positive 02/25/23 06:09 Rho(D) Type Positive 02/25/23 06:09 Antibody Screen Negative 02/25/23 06:09 Vitals Last Vital Signs Temp 98.6 F 02/26/23 04:00 Pulse 56 L 02/26/23 04:00 Resp 16 02/26/23 04:00 BP 151/84 02/26/23 04:00 Pulse Ox 98 02/26/23 04:00 O2 Del Method Room Air 02/26/23 04:00 O2 Flow Rate 93 02/25/23 20:00 Discharge Plan Discharge Patient Disposition: Home Condition: Stable Prescriptions: New ibuprofen 800 mg tablet 800 mg PO TID PRN (Reason: pain) Qty: 60 0RF hydrocodone-acetaminophen 5-325 mg tablet 1 tab PO Q4H PRN (Reason: pain) Qty: 20 0RF acetaminophen 325 mg capsule 325 mg PO Q4H PRN (Reason: fever or pain) Qty: 60 0RF Continued (DME) lancets [Accu-Chek Softclix Lancets] Misc See Rx Instructions .Route Qty: 200 0RF Rx Instructions: BID (DME) blood-glucose meter Kit See Rx Instructions .Route Qty: 1 0RF Rx Instructions: As directed lisinopril-hydrochlorothiazide 10-12.5 mg tablet 1 tab PO QAM 90 Days Qty: 90 1RF fluoxetine 20 mg capsule 20 mg PO DAILY (DME) Accu-Chek Guide test strips Strip See Rx Instructions .Route Qty: 100 1RF Rx Instructions: BID fluticasone propionate [Flovent HFA] 110 mcg/actuation HFA aerosol inhaler 1 puff inhalation BID PRN (Reason: unknown) Qty: 12 0RF buspirone 5 mg tablet See Rx Instructions .ROUTE .COMPLEX Qty: 60 0RF Dose Instruction: TAKE 1 TABLET BY MOUTH TWICE DAILY Rx Instructions: TAKE 1 TABLET BY MOUTH TWICE DAILY Eliquis 5 mg tablet 5 mg PO BID Qty: 180 0RF Hold Instructions: Resume on 02/14/23. albuterol sulfate 90 mcg/actuation HFA aerosol inhaler 2 puff inhalation Q6H PRN (Reason: Bronchospasm) aspirin 81 mg Tablet,Delayed Release (Dr/Ec) 81 mg PO DAILY Qty: 90 1RF atorvastatin 40 mg tablet 40 mg PO DAILY metoprolol tartrate 25 mg tablet 25 mg PO BID Discharge Orders: Discharge Order (Routine); Ordered 02/26/23 Ordered By: Rajinder Mo Referrals: Rajinder Mo MD [Physician] - 2 weeks ( Your 2 week follow up appointment is on 03/12/2023 at 1:45pm Your 6 week post op appointment is on 04/14/2023 at 9:00am ) Discharge Diet: Usual diet Discharge Activity: Limit activity as instructed Patient Instructions: Opioid Safety (DC), Vaginal Hysterectomy (DC), OB Discharge Report, OB Food/Drug Interaction Guide, Opioid Safety Activity Restrictions/Additional Instructions: 1. Please call [facility] on next working day to make your post-operative appointment in 2 weeks. 2. Please stay home until you come back to the clinic on first post-hospatilization check up. 3. Please follow instructions on your medications CAREFULLY. 4. If you have abdominal incision, do not cover it unless dressing is necessary because of drainage. OK to shower, but avoid bath. Leave steri-strips until they fall off. If they are still on one week after surgery, you may remove them. 5. If you had vaginal surgery or vaginal repair, Dr. Mo may instruct you to take SITZ bath. 6. Yellow, blood tinged odorous vaginal discharge is usually normal after hysterectomy or vaginal surgeries. 7. No SEXUAL INTERCOURSE, tampons, or douches until you are completely released from the post-operative care. 8. Avoid constipation by eating right and maybe using some Metamucil or Milk of Magnesia. 9. All prescription refills are given during the working hours. Please do no wait till it runs out. Call the clinic at [phone] before your medication runs out. The clinic will get in touch with your doctor to prescribe medications if necessary. 10. Please remain within 40 mile radius from our hospital because emergencies do happen now and then during the post-operative period. 11. If you have stairs at home, take one step at a time slowly and minimize the number of trips. It helps to stay in one floor for the next few days. No lifting except what you can lift by one hand until you are released from the post-operative care. 12. Driving is discouraged until you are well healed. It may be 3-4 weeks before you feel strong enough to drive. You should be able to turn and look through the rear window without pain and you should be able to push the brake pedal very hard without pain before you drive. No fast rules, but SAFETY should be your primary concern. DO NOT drive if you are on sedating medications such as narcotics. 13. Call the clinic (during working hours) to make urgent appointment or go to the Emergency room, if any of the following occurs: i. Vaginal bleeding becomes heavy, more than a period. ii. Incision becomes red and sore, or drains pus. iii. Your TEMPERATURE is over 100.4F or you have chill. iv. IV site becomes red and swollen (a little ``knot?? is usually OK) v. Persistent nausea and vomiting vi. Persistent constipation or diarrhea vii. Rash or allergic reaction to medications. Discharge Attestations BD SPECIAL EDUCATION TEACHER Time Spent in Discharge Care*: greater than 30 min Coding Level of Care Code Acute Code for Chg Fwd Diagnoses
[2023-02-26] MEDS: simethicone 80 mg Chew PO (07:42)
[2023-02-26] MEDS: docusate sodium 100 mg Capsule PO (07:42)
[2023-02-26 07:45] VITALS: BP 151/90; PULSE 55; RESP 16; TEMP 36.6; O2SAT 97
== END 2023-02-26 08:05 | disposition home or self-care (01) ==
LOC: OBGYN 10:01
PROVIDERS: Admitting Provider Obstetrics & Gynecology; PCP Registered Nurse; Visit Provider Obstetrics & Gynecology
PROC: (CPT 58260; principal; 2023-02-25 07:00)
DX: D25.1 Intramural leiomyoma of uterus (principal)
CPT/HCPCS: 58260; 36415; 80053; 81001; 81025; 84703; 85025; 85027; 85610; 86850; 86900; 88307; G0378; J0131; J0360; J0690; J1100; J1170; J1200; J1650; J2250; J2371; J2405; J2704; J3010; J3490; J3535; J7040; J7121

== ENCOUNTER → 2023-09-23 10:02 | Outpatient (BNVA) | payer MEDICAID, SELFPAY | PROVIDERS: PCP Registered Nurse; Visit Provider Registered Nurse | DX: I25.10 Atherosclerotic heart disease of native coronary artery without angina pectoris (principal); E78.5 Hyperlipidemia, unspecified; I10 Essential (primary) hypertension; Z00.00 Encounter for general adult medical examination without abnormal findings; G25.81 Restless legs syndrome; Z72.0 Tobacco use | CPT/HCPCS: 80053; 80061; 83036; 85025 ==

== ENCOUNTER 2023-10-01 14:53 | Outpatient (CLI) | payer MEDICAID, SELFPAY ==
--- NOTE | 2023-10-01 15:00 | MM_ITS ---
WS: [id number] BILATERAL 3D TOMOSYNTHESIS DIGITAL SCREENING MAMMOGRAPHY WITH CAD CLINICAL INFORMATION: Z12.39 - Encounter for other screening for malignant neop... HISTORY: Screening mammogram. No current complaints. COMPARISON: 2020 TECHNIQUE: Bilateral CC and MLO views. FINDINGS: The breasts are composed of heterogeneous fibroglandular density tissue, which can limit the detectio n of small underlying mass lesions. No suspicious mass, asymmetry, calcifications, or architectural d istortion. No evidence of malignancy. IMPRESSION: MM/[place] [id number] BI-RADS: 1-Negative FOLLOW UP: 1 Year Follow-up Recommend return to annual screening mammography.
== END 2023-10-01 14:54 | disposition home or self-care (01) ==
LOC: MOBLMAM 14:57
PROVIDERS: PCP Registered Nurse; Visit Provider Registered Nurse
DX: Z12.31 Encounter for screening mammogram for malignant neoplasm of breast (principal)
CPT/HCPCS: 77063; 77067

== ENCOUNTER 2024-02-16 09:01 | Emergency (ER) | payer MEDICAID, SELFPAY ==
[2024-02-16 09:12] VITALS: BP 137/89; PULSE 65; RESP 16; TEMP 36.4; O2SAT 99; BMI 25.7
--- NOTE | 2024-02-16 09:14 | XR_ITS ---
WS: [id number] Examination: XR chest 1V portable [id number] Reason for Exam: chest pain Date: February 16, 2024 Comparison: July 29, 2022 Findings: The heart is normal in size. The mediastinum is not widened. The left suprahilar area remains prominent. This is similar to the study dating back to 05/07/2018. The lungs appear hyperinflated There is no pulmonary edema or large effusion. There is no dense consolidation There is an old right ninth rib fracture noted XR/XR chest 1V portable [id number] Impression: No acute lung process is seen.
--- NOTE | 2024-02-16 09:14 | ECG_ITS ---
[facility] Test Date: 2024-02-16 Pat Name: Yana Vyas Department: Room: Gender: Female Talent Acquisition Partner: : [id number] Requested By: Nighat Ayers Order Number: [id number] Garrison MD: Keny Oquendo M.D. Measurements Intervals [place] Rate: 67 P: 64 [place]: 169 QRS: 53 QRSD: 94 T: 50 QT: 394 QTc: 419 Interpretive Statements SINUS RHYTHM POSSIBLE RIGHT VENTRICULAR CONDUCTION DELAY [RSR (QR) IN V1/V2] Compared to ECG 07/29/2022 20:58:06 Incomplete right bundle-branch block no longer present T-wave abnormality no longer present Electronically Signed On 02-17-2024 7:38:48 CDT by Keny Oquendo M.D. [id number]
[2024-02-16 09:38] LABS: Basophils % 0.3 %; Eosinophils % 0.7 %; Hematocrit 40.6 % (36-47); Lymphocytes # 2.7 10^3/uL (0.8-4.8); Lymphocytes % 44.8 %; Mean Corpuscular HGB Conc 35.5 g/dL (30-55); Mean Corpuscular Hemoglobin 30.8 pg (27-33); Mean Corpuscular Volume 86.8 fl (85-98); Mean Platelet Volume 8.5 fL (7.4-10.4); Monocytes # 0.5 10^3/uL (0.2-0.9); Monocytes % 8.4 %; Neutrophils # 2.77 10^3/uL (1.8-7.7); Neutrophils % 45.5 %; Nucleated Red Blood Cells % 0 %; Platelet Count 243 10^3/cmm (157-399); Red Blood Count 4.68 10^6/uL (3.85-5.65); Red Cell Distribution Width 13.2 % (12.1-15.1); White Blood Count 6.09 10^3/uL (3.29-11.43)
[2024-02-16 09:49] LABS: Troponin(5th) Baseline < 6 ng/L (0-10)
[2024-02-16 09:53] LABS: Alanine Aminotransferase 27 U/L (0-33); Albumin Level 4.2 g/dL (3.5-5.2); Alkaline Phosphatase 59 U/L (35-105); Anion Gap 14.6 (5-19); Aspartate Amino Transferase 20 U/L (0-32); Blood Urea Nitrogen 8 mg/dL (6-20); Carbon Dioxide 24 mmol/L (22-29); Chloride 97 mmol/L (98-107); Creatinine Clr Calc Pharmacy 79.2537; Globulin 3.7 g/dL (1.3-4.6); Glomerular Filtration Rate 76.9 mL/min (90-130); Glucose 196 mg/dL (65-115); Osmolality Calculated 278 mOsm/kg (285-295); Potassium 3.6 mmol/L (3.5-5.1); Sodium 132 mmol/L (136-145); Total Bilirubin 0.6 mg/dL (0.15-1.2); Total Protein 7.9 g/dL (6.6-8.7)
[2024-02-16 10:00] VITALS: BP 93/71; PULSE 61; O2SAT 98
--- NOTE | 2024-02-16 10:01 | ED_ITS ---
HPI - Chest Pain 2 General: Chief Complaint: Chest Pain Stated Complaint: CP Time Seen by Provider: 02/16/24 09:45 Source: patient and family Mode of arrival: ambulatory Limitations: no limitations History of Present Illness: Patient is a 49-year-old female with a history of arthrosclerotic heart disease- cardiac stent placed in 2018, hyperlipidemia, hypertension, and daily smoking here with complaints of intermittent chest pain beginning approximately 2 hours ago. She states pain began at rest/while driving. She states she will get episodes of left sided nonradicular discomfort for several minutes before it will subside completely. She has had a few episodes since onset. She states given her previous history of DC she wanted to get it checked out . Patient states she is up-to-date on outpatient cardiac testing. She sees Dr. Bentley. Patient states she underwent cardiac cath 07/2022 for complaints of chest pain. Results below: Diagnostic Findings * INDICATION: Patient with prior coronary artery disease history was transferred from outside hospital with worsening chest pain symptoms. Symptoms were typical and felt like her prior DC. Plan for coronary angiogram with possible percutaneous coronary intervention. * Left Main has no significant disease. * Circumflex has no significant disease. * Mid Left Anterior Descending: minimal 30% stenosis, CHAZ: 3 flow. * Proximal Right Coronary Artery: minimal 30% stenosis, CHAZ: 3 flow. * Posterior Descending Right: minimal 30% stenosis, CHAZ: 3 flow. * Coronary angiography shows right dominance. Conclusions 1. Non-obstructive Coronary artery disease. 2. Normal left ventricular systolic function. Ejection fraction of 60%. Patient is not having any shortness of breath or difficulty breathing. She reports a chronic smoker's cough . Currently at time of my examination patient is not having any chest discomfort. 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 complaint: chest pain Pertinent past history: coronary artery disease and prior DC Onset (ago): hour(s) Timing of current episode: episodic Onset: during rest Pain location: substernal Pain radiation: none Relieving factors: nothing Exacerbating factors: nothing Associated symptoms: Reports no associated symptoms; Deny abdominal pain, dyspnea, fever(s), palpitations, syncope or vomiting Treatment prior to arrival: none Risk Factors: Coronary artery disease risk factors: smoking history, hyperlipidemia and hypertension Thoracic aortic dissection risk factors: none Related Data On Oral Contraceptives: No Home Medications Medication Instructions Recorded Confirmed albuterol sulfate 90 mcg/actuation 2 puff inhalation Q6H PRN 07/30/22 02/16/24 aerosol inhaler Bronchospasm apixaban 5 mg tablet (Eliquis) 5 mg PO BID 02/16/24 02/16/24 atorvastatin 40 mg tablet 40 mg PO DAILY 02/16/24 02/16/24 fluticasone propionate 110 1 puff inhalation QAM PRN 02/16/24 02/16/24 mcg/actuation HFA aerosol inhaler Shortness Of Breath lisinopril 10 1 tab PO QAM 02/16/24 02/16/24 mg-hydrochlorothiazide 12.5 mg tablet Previous Rx's Medication Instructions Recorded blood-glucose meter #1 ea 08/07/22 lancets (Accu-Chek Softclix #200 ea 08/07/22 Lancets) blood sugar diagnostic (Accu-Chek #100 ea 10/07/22 Guide test strips) metoprolol tartrate 25 mg tablet 25 mg PO BID #60 tabs 11/19/23 Allergies Allergy/AdvReac Type Severity Reaction Status Date / Time lisinopril Allergy ALGY-Rash Verified 02/16/24 09:14 Review of Systems 2 Const: Denies: fever(s), chills, body aches, fatigue or malaise Card: Reports: chest pain; Denies: palpitations, irregular heart rhythm, edema, swelling of feet/ankles, lightheadedness, syncope, pre-syncope, dyspnea on exertion, orthopnea or acrocyanosis Resp: Denies: dyspnea, wheezing, pain on inspiration, hemoptysis or chest congestion GI: Denies: abdominal pain or vomiting Musc: Denies: neck pain, back pain, extremity pain, extremity swelling or joint pain Skin/Breast: Denies: rash Neuro: Denies: dizziness PFSH ED 2 PFSH: Medical History History of DC (myocardial infarction) Anxiety and depression Irritable bowel syndrome Tobacco abuse ASHD (arteriosclerotic heart disease) Dyslipidemia Hypertension Surgical History H/O total hysterectomy (~02/25/23) TVH performed by [facility] at [facility] for uterine fibroids and pelvic pain. Hx of tubal ligation History of heart artery stent Family History Other Cancer Diabetes Heart disease Hypertension Thyroid disease Denies family history of Colon cancer Ovarian cancer Hypercholesteremia Breast cancer Uterine cancer Stroke Social History Smoking and tobacco/nicotine status: current every day tobacco/nicotine user Physical Exam 2 Const: COMMON NORMALS: no acute distress, average body habitus, patient oriented x3, no limitations, healthy appearing, alert and well nourished G ENERAL APPEARANCE: cooperative ORIENTATION/CONSCIOUSNESS: Yes awake, Yes oriented to person, Yes oriented to place and Yes oriented to time HENMT: COMMON NORMALS: normocephalic and atraumatic HEAD & SCALP: normal to inspection, normocephalic and atraumatic Neck/C-Spine: COMMON NORMALS: full ROM, no lymphadenopathy, supple and no meningeal signs Chest: COMMONS NORMALS: normal inspection of the chest Resp: COMMON NORMALS: normal respiratory effort and clear to auscultation bilaterally AUSCULTATION: clear to auscultation bilaterally Cardio: COMMON NORMALS: regular rate and regular rhythm RATE: regular rate RHYTHM: regular rhythm GI: COMMON NORMALS: Normal to inspection, nondistended, normoactive bowel sounds present, Soft to palpation, non-tender, No hepatosplenomegaly present and no masses PALPATION: Yes Soft to palpation and Yes No hepatosplenomegaly present : COMMON NORMALS: Yes no CVA tenderness BLADDER/KIDNEY EXAM: Yes no CVA tenderness Back/Pelvis: COMMON NORMALS: no CVA tenderness and thoracic and lumbar spine normal to inspection Extremity: COMMON NORMALS: normal to inspection and capillary refill normal GENERAL: Yes normal exam except as noted Neuro: ERIKA COMA SCALE: document GCS findings Erika coma scale eye opening: Spontaneous [place] coma scale verbal response: Orientated Erika coma scale motor response: Obey commands [place] coma scale total score: 15 COMMON NORMALS: patient oriented x3 SENSORIUM/ORIENTATION: Yes alert, Yes oriented to person, Yes oriented to place and Yes oriented to time MENINGEAL SIGNS: Y es no meningeal signs Skin: COMMON NORMALS: no rashes or lesions noted GENERAL SKIN EXAM: no rashes or lesions noted Course 2 Vital Signs: Vital signs: Vital Signs Temperature 97.5 F L 08/12/24 09:12 Pulse Rate 60 02/16/24 11:45 Respiratory Rate 16 02/16/24 09:12 Blood Pressure 91/58 02/16/24 11:45 Pulse Oximetry 100 02/16/24 11:45 Oxygen Delivery Me thod Room Air 02/16/24 11:45 MDM - Chest Pain Medical Decision Making Patient has been chest pain-free during her entire ED stay. She appears in no acute distress with stable vital signs. Her blood work including baseline and 2-hour troponins are unremarkable. EKGs are nonischemic. She has a follow-up appointment scheduled with cardiology next month. Will try to get her a sooner appointment for this. She was given strict return to ED precautions. Medical Records I reviewed the patient's medical records. Lab Data I reviewed the patient's lab results. 02/16/24 09:27 02/16/24 09:27 Radiology Impressions Chest X-Ray 02/16/24 09:14 Impression: No acute lung process is seen. Laboratory Results WBC 6.09 10^3/uL (3.29-11.43) 02/16/24 09:27 RBC 4.68 10^6/uL (3.85-5.65) 02/16/24 09:27 Hgb 14.40 g/dL (11.27-16.99) 02/16/24 09:27 Hct 40.6 % (36-47) 02/16/24 09:27 MCV 86.8 fl (85-98) 02/16/24 09:27 MCH 30.8 pg (27-33) 02/16/24 09:27 MCHC 35.5 g/dL (30-55) 02/16/24 09:27 RDW 13.2 % (12.1-15.1) 02/16/24 09:27 Plt Count 243 10^3/cmm (157-399) 02/16/24 09:27 MPV 8.5 fL (7.4-10.4) 02/16/24 09:27 Neut % (Auto) 45.5 % 02/16/24 09:27 Lymph % (Auto) 44.8 % 02/16/24 09:27 [place] % (Auto) 8.4 % 02/16/24 09:27 Eos % (Auto) 0.7 % 02/16/24 09:27 Baso % (Auto) 0.3 % 02/16/24 09: Neut # (Auto) 2.77 10^3/uL (1.8-7.7) 02/16/24 09: Lymph # (Auto) 2.7 10^3/uL (0.8-4.8) 02/16/24 09:27 [place] # (Auto) 0.5 10^3/uL (0.2-0.9) 02/16/24 09:27 Eos # (Auto) 0.0 10^3/uL (0.0-0.8) 02/16/24 09: Baso # (Auto) 0.0 10^3/uL (0.0-0.1) 02/16/24 09: Nucleated RBC % (auto) 0 % 02/16/24 09: Nucleated RBCs # 0.0 /100WBC 02/16/24 09:27 Sodium 132 mmol/L (136-145) L 02/16/24 09:27 Potassium 3.6 mmol/L (3.5-5.1) 02/16/24 09: Chloride 97 mmol/L (98-107) L 02/16/24 09:27 Carbon Dioxide 24 mmol/L (22-29) 02/16/24 09:27 Anion Gap 14.6 (5-19) 02/16/24 09:27 BUN 8 mg/dL (6-20) 02/16/24 09: Creatinine 0.8 mg/dL (0.5-0.9) 02/16/24 09:27 GFR Calculation 76.9 mL/min (90-130) L 02/16/24 09:27 Glucose 196 mg/dL (65-115) H 02/16/24 09:27 Calculated Osmolality 278 mOsm/kg (285-295) L 02/16/24 09:27 Calcium 9.0 mg/dL (8.5-10.5) 02/16/24 09:27 Total Bilirubin 0.6 mg/dL (0.15-1.2) 02/16/24 09:27 AST 20 U/L (0-32) 02/16/24 09:27 ALT 27 U/L (0-33) 02/16/24 09:27 Alkaline Phosphatase 59 U/L (35-105) 02/16/24 09:27 Troponin T Baseline < 6 ng/L (0-10) 02/16/24 09:27 Troponin T 120 Minute 6.00 ng/L (0-10) 02/16/24 11:20 Delta Troponin T 0.33303 ABS# (0-10) 02/16/24 11:20 Total Protein 7.9 g/dL (6.6-8.7) 02/16/24 09:27 Albumin 4.2 g/dL (3.5-5.2) 02/16/24 09:27 Globulin 3.7 g/dL (1.3-4.6) 02/16/24 09:27 All radiology interpretation(s) finalized by discharge Clincial Decision Support The following clinical decision support tools were used to aid in care of the patient HEART Score -> History: Slightly Suspicous, EKG: Normal, Age: 45-64 yrs, Risk Factors: >/=3 Risk Factors, Troponin: Baseline Trop <16 ng/L. Resulting HEART Score: 3. Discharge Plan Discharge Patient Disposition: Home Clinical Impression: Chest pain Condition: Stable Prescriptions: No Action (DME) lancets [Accu-Chek Softclix Lancets] Misc See Rx Instructions .Route Qty: 200 0RF Rx Instructions: BID (DME) blood-glucose meter Kit See Rx Instructions .Route Qty: 1 0RF Rx Instructions: As directed (DME) Accu-Chek Guide test strips Strip See Rx Instructions .Route Qty: 100 1RF Rx Instructions: BID metoprolol tartrate 25 mg tablet 25 mg PO BID Qty: 60 3RF albuterol sulfate 90 mcg/actuation HFA aerosol inhaler 2 puff inhalation Q6H PRN (Reason: Bronchospasm) atorvastatin 40 mg tablet 40 mg PO DAILY lisinopril-hydrochlorothiazide 10-12.5 mg tablet 1 tab PO QAM fluticasone propionate 110 mcg/actuation HFA aerosol inhaler 1 puff inhalation QAM PRN (Reason: Shortness Of Breath) Eliquis 5 mg tablet 5 mg PO BID Discharge Orders: Discharge ED (Routine); Ordered 02/16/24 Ordered By: Nighat Ayers Referrals: Ricardo Solano FNP [Primary Care Provider] - Patient Instructions: Chest Pain (DC) Activity Restrictions/Additional Instructions: As we discussed we will try to have case management set you up with a sooner appointment for 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 You need to return the emergency department continued episodes of chest pain, any severe pain, shortness of breath, difficulty breathing, or any other concerns you may have. Coding Level of Care Code ED Import Customer Service Manager for Tom Swanson
[2024-02-16 11:00] VITALS: BP 120/67; PULSE 59; O2SAT 100
--- NOTE | 2024-02-16 11:01 | ECG_ITS ---
[facility] Test Date: 2024-02-16 Pat Name: Yana Vyas Department: Room: Gender: Female [employer] Supervisor: : 1975 Requested By: Nighat Ayers Order Number: [id number] Meli MD: Keny Oquendo M.D. Measurements Intervals [place] Rate: 60 P: 58 GA: 179 QRS: 22 QRSD: 103 T: 50 QT: 435 QTc: 436 Interpretive Statements SINUS RHYTHM POSSIBLE RIGHT VENTRICULAR CONDUCTION DELAY [RSR (QR) IN V1/V2] NONSPECIFIC T-WAVE ABNORMALITY Compared to ECG 02/16/2024 09:07:27 T-wave abnormality now present Electronically Signed On 02-17-2024 7:42:33 CDT by Keny Oquendo M.D. [id number]
[2024-02-16 11:42] LABS: Troponin 5 2HR Delta 0.00001 ABS# (0-10)
[2024-02-16 11:45] VITALS: BP 91/58; PULSE 60; O2SAT 100
--- NOTE | 2024-02-16 13:03 | DCPLANNER ---
messaged heart care to try for an earlier appt, er f/u
== END 2024-02-16 12:06 | disposition home or self-care (01) ==
PROVIDERS: Emergency Provider Physician Assistant; PCP Registered Nurse
DX: R07.9 Chest pain, unspecified (principal); Z79.01 Long term (current) use of anticoagulants; Z72.0 Tobacco use; I25.2 Old myocardial infarction; E78.5 Hyperlipidemia, unspecified; I10 Essential (primary) hypertension
CPT/HCPCS: 36415; 71045; 80053; 84484; 85025; 93005; 99285

== ENCOUNTER → 2024-04-09 10:42 | Outpatient (BNVA) | payer MEDICAID, SELFPAY | PROVIDERS: PCP Registered Nurse; Visit Provider Registered Nurse | DX: E11.9 Type 2 diabetes mellitus without complications (principal) | CPT/HCPCS: 83036; 85025 ==

== ENCOUNTER → 2024-10-29 09:32 | Outpatient (BNVA) | payer MEDICAID, SELFPAY | PROVIDERS: PCP Registered Nurse; Visit Provider Registered Nurse | DX: E11.9 Type 2 diabetes mellitus without complications (principal); I10 Essential (primary) hypertension | CPT/HCPCS: 80053; 80061; 83036; 85025 ==

== ENCOUNTER 2024-12-29 06:50 | Outpatient (CLI) | payer MEDICAID, SELFPAY ==
[2024-12-29 07:25] VITALS: PULSE 63; RESP 18; O2SAT 99
[2024-12-29] MEDS: albuterol 2.5 mg/3 mL Neb INHALATION (07:25)
== END 2024-12-29 06:51 | disposition home or self-care (01) ==
LOC: RT 06:52
PROVIDERS: PCP Registered Nurse; Visit Provider Registered Nurse
DX: R06.02 Shortness of breath (principal); J98.8 Other specified respiratory disorders
CPT/HCPCS: 94060; 94726; 94729; J7613

== ENCOUNTER 2025-01-25 11:17 | Outpatient (CLI) | payer MEDICAID, SELFPAY ==
--- NOTE | 2025-01-25 11:20 | MM_ITS ---
WS: [id number] BILATERAL 3D TOMOSYNTHESIS DIGITAL SCREENING MAMMOGRAPHY WITH CAD CLINICAL INFORMATION: Z12.31 - Encounter for screening mammogram for malignant ... HISTORY: Screening mammogram. No current complaints. COMPARISON: 2023 TECHNIQUE: Bilateral CC and MLO views. FINDINGS: The breasts are composed of heterogeneous fibroglandular density tissue, which can limit the detection of small underlying mass lesions. No suspicious mass, asymmetry, calcifications, or architectural distortion. No evidence of malignancy. MM/MM [facility] tomosynthesis [id number] IMPRESSION: DENSITY: The breasts are heterogeneously dense, which may obscure small masses. BI-RADS: 1 - Negative FOLLOW UP: 1 Year Follow-up Recommend return to annual screening mammography.
== END 2025-01-25 11:18 | disposition home or self-care (01) ==
LOC: RAD 11:18
PROVIDERS: PCP Registered Nurse; Visit Provider Registered Nurse
DX: Z12.31 Encounter for screening mammogram for malignant neoplasm of breast (principal); R92.323 Mammographic fibroglandular density, bilateral breasts; R92.333 Mammographic heterogeneous density, bilateral breasts
CPT/HCPCS: 77063; 77067

== ENCOUNTER 2025-02-16 11:51 | Outpatient (CLI) | payer MEDICAID, SELFPAY | END 2025-02-16 11:52 | disposition home or self-care (01) | LOC: SLEEP 11:52 | PROVIDERS: PCP Registered Nurse; Referring Provider Registered Nurse; Visit Provider Internal Medicine Pulmonary Disease | DX: G47.30 Sleep apnea, unspecified (principal); I10 Essential (primary) hypertension | CPT/HCPCS: G0399 ==

== ENCOUNTER → 2025-03-14 17:13 | Outpatient (BNVA) | payer MEDICAID, SELFPAY | PROVIDERS: PCP Registered Nurse; Visit Provider Internal Medicine | DX: J44.9 Chronic obstructive pulmonary disease, unspecified (principal) | CPT/HCPCS: 36415; 85025 ==